=== PATIENT | female | born 1965 | race Caucasian/White ===

== ENCOUNTER 2017-10-17 10:55 | Emergency (ER) | payer MEDICARE, OTHER ==
[2017-10-17 11:43] VITALS: BP 154/86
--- NOTE | 2017-10-17 13:20 | UC ---
Complaint Female HPI - HPI Summary HPI Summary: pt is c/o a UTI. she describes this as frequent-urgent urination with burning and bad odor to the urine. states hx of the same. no fever, flank or abdominal pain. s/s's for a week. self tx with azo. - History Of Current Complaint Chief Complaint: UCGU Stated Complaint: URINARY Time Seen by Provider: 10/17/17 12:33 Hx Obtained From: Patient Onset/Duration: Gradual Onset Timing: Constant Pain Intensity: 0 Pain Scale Used: 0-10 Numeric Aggravating Factor(s): Nothing Alleviating Factor(s): Nothing Associated Signs And Symptoms: Negative: Fever, Back Pain - Allergies/Home Medications Allergies/Adverse Reactions: Allergies Allergy/AdvReac Type Severity Reaction Status Date / Time No Known Allergies Allergy Verified 10/17/17 11:43 Home Medications: Home Medications Baclofen TAB* [Lioresal TAB*] 20 mg PO TID 10/17/17 [History Confirmed 10/17/17 ] Dalfampridine [Ampyra] 10 mg PO BID 10/17/17 [History Confirmed 10/17/17] Gabapentin CAP(*) [Neurontin 100 mg CAP(*)] 100 mg PO TID 10/17/17 [History Confirmed 10/17/17] Interferon Beta-1A/Albumin [Avonex] 30 mcg IM 10/17/17 [History Confirmed ] PMH/Surg Hx/FS Hx/Imm Hx - Additional Past Medical History Additional PMH: MS,UTI's - Surgical History Surgical History: Yes Surgery Procedure, Year, and Place: Tonsillectomy, - Family History Known Family History: Positive: Other - [place] - Social History Occupation: Disabled Alcohol Use: Occasionally Substance Use Type: None Smoking Status (MU): Former Smoker - Immunization History Vaccination Up to Date: Yes Review of Systems Constitutional: Negative Skin: Negative Eyes: Negative ENT: Negative Respiratory: Negative Cardiovascular: Negative Gastrointestinal: Negative Genitourinary: Dysuria, Frequency Motor: Negative Neurovascular: Negative Musculoskeletal: Negative Neurological: Negative Psychological: Negative Is Patient Immunocompromised?: No All Other Systems Reviewed And Are Negative: Yes Physical Exam Triage Information Reviewed: Yes Appearance: Well-Appearing Vital Signs: Initial Vital Signs Temp 98.4 F 10/17/17 11:36 Pulse 93 10/17/17 11:36 Resp 16 10/17/17 11:36 BP 154/86 10/17/17 11:36 Pulse Ox 96 10/17/17 11:36 Vital Signs Reviewed: Yes Eyes: Positive: Conjunctiva Clear ENT: Positive: Normal ENT inspection Neck: Positive: Supple, Nontender, No Lymphadenopathy Respiratory: Positive: Lungs clear, Normal breath sounds Cardiovascular: Positive: RRR, No Murmur Abdomen Description: Positive: Nontender, No Organomegaly, Soft. Negative: CVA Tenderness (R), CVA Tenderness (L), Distended, Guarding Bowel Sounds: Positive: Present Musculoskeletal: Positive: ROM Intact Neurological: Positive: Alert Psychological: Positive: Age Appropriate Behavior Skin Exam: Normal Complaint Female Dx - Course Course Of Treatment: BP mildly elevated, will have recheck on f/u. non toxic, no acute abdomen. s/s's suggest UTI thus will tx presumtively with culture pending. no u/a, taking AZO - Differential Dx/Diagnosis Provider Diagnoses: Dysuria Discharge - Sign-Out/Discharge Documenting (check all that apply): Patient Departure - Discharge Plan Condition: Stable Disposition: HOME Prescriptions: Nitrofurantoin Monohyd/M-Cryst [Macrobid 100 mg Capsule] 100 mg PO BID #10 cap Patient Education Materials: Dysuria (ED) Referrals: Man Kidd MD [Primary Care Provider] - 7 Days - Billing Disposition and Condition Condition: STABLE Disposition: Home
== END 2017-10-17 12:54 | disposition home or self-care (01) ==
LOC: UCCORT 10:55
DX: R30.0 Dysuria (principal); G35 Multiple sclerosis; Z87.891 Personal history of nicotine dependence
CPT/HCPCS: 87077; 87086; 87186; 99212; G0463

== ENCOUNTER 2018-03-14 15:17 | Emergency (ER) | payer MEDICARE ==
[2018-03-14 15:54] VITALS: BP 156/87
--- NOTE | 2018-03-14 16:20 | UC ---
UC General HPI - HPI Summary HPI Summary: 1. PT C/O FREQUENT URINATION WITH BLADDER SPASM AND BURNING WITH STREAM X 2 WEEKS. WORSE SINCE YESTERDAY WHEN DEVELOPED ODOR TO URINE. HX SAME C/W UTI. HER NEUROLOGIST HAS ARRANGED FOR UROLOGY F/U IN 04/15 DUE TO URINARY ISSUES. DENIES FEVER, FLANK PAIN AND ABDOMINAL PAIN. 2. PT ALSO C/O PAIN IN HER R KNEE OVER SEVERAL MONTHS. STATES HX FALLS DUE TO MS. THIS AM BUMPED THE FRONT OF THAT KNEE ALL OF WHICH SHE FEELS IS MAKING THE KNEE WORSE. KNEE HURTS MORE WITH WEIGHT BEARING AND EXTENSION. PT FEELS FRONT OF KNEE IS SWOLLEN. - History of Current Complaint Chief Complaint: UCGU Stated Complaint: URINARY/RT KNEE SWOLLEN Time Seen by Provider: 03/14/18 16:03 Hx Obtained From: Patient Hx Last Menstrual Period: n/a Pain Intensity: 4 Associated Signs & Symptoms: Negative: Fever - Allergy/Home Medications Allergies/Adverse Reactions: Allergies Allergy/AdvReac Type Severity Reaction Status Date / Time environmntal Allergy Unknown Uncoded 03/14/18 15:55 Reaction Details Home Medications: Home Medications Cetirizine* [ZyrTEC 10 MG TAB*] 10 mg PO QPM 03/14/18 [History Confirmed ] Multivitamins/Minerals TAB* [Theragran/minerals TAB*] 1 tab PO DAILY 03/14/18 [ History Confirmed 03/14/18] PMH/Surg Hx/FS Hx/Imm Hx - Additional Past Medical History Additional PMH: MS, URINARY INCONTINENCE, UTI'S, LYMPHEDEMA - Surgical History Surgical History: Yes Surgery Procedure, Year, and Place: Tonsillectomy, - Family History Known Family History: Positive: Other - [place] - Social History Occupation: Disabled Alcohol Use: Occasionally Substance Use Type: None Smoking Status (MU): Former Smoker - Immunization History Vaccination Up to Date: Yes Review of Systems All Other Systems Reviewed And Are Negative: Yes Constitutional: Positive: Negative Skin: Positive: Negative Eyes: Positive: Negative ENT: Positive: Negative Respiratory: Positive: Negative Cardiovascular: Positive: Negative Gastrointestinal: Negative: Abdominal Pain, Vomiting, Diarrhea, Nausea Genitourinary: Positive: Dysuria, Frequency, Urgency Motor: Positive: Negative Neurovascular: Positive: Negative Musculoskeletal: Positive: Arthralgia - R KNEE, Edema - BLE'S, CHRONIC WITH NO CHANGES Neurological: Positive: Negative Psychological: Positive: Negative Physical Exam Triage Information Reviewed: Yes Appearance: Well-Appearing Vital Signs: Initial Vital Signs Temp 98.8 F 03/14/18 15:41 Pulse 91 03/14/18 15:41 Resp 18 03/14/18 15:41 BP 156/87 03/14/18 15:41 Pulse Ox 100 03/14/18 15:41 Vital Signs Reviewed: Yes Eyes: Positive: Conjunctiva Clear ENT: Positive: Normal ENT inspection Neck: Positive: Supple, Nontender Respiratory: Positive: Lungs clear, Normal breath sounds Cardiovascular: Positive: RRR, No Murmur Abdomen Description: Positive: Nontender, No Organomegaly, Soft. Negative: CVA Tenderness (R), CVA Tenderness (L), Distended, Guarding Bowel Sounds: Positive: Present Musculoskeletal: Positive: Edema @ - BLE'S KNEES DOWN L>R(CHRONIC AND UNCHANGED) , Other: - R KNEE COMPARED TO L HAS NO OBVIOUS DEFORMITY, DISCOLORATION OR SWELLING. TENDER OVER PATELLA AND JOINT LINE. ACTIVE NON WEIGHT ROM IS INTACT. NO JOINT LAXITY. Neurological: Positive: Alert Psychological: Positive: Age Appropriate Behavior Skin Exam: Normal Diagnostics - Laboratory Diagnostic Studies Completed/Ordered: U/A=PROTEIN, BLOOD, LEUKOCYTES WITH CULTURE PENDING. - Radiology No standard instances Radiology Interpretation Completed By: ED Physician - wet read R knee=NAD Course/Dx - Course Course Of Treatment: WILL TX FOR UTI. NO CONCERN FOR PYELONEPHRITIS AND NO BLADDER DISTENSION APPRECIATED ON EXAM. PT ALREADY HAS UROLOGY F/U. NO CONCERN FOR FX OR INFECTION R KNEE. WILL REFER TO ORTHOPEDICS. - Diagnoses Provider Diagnosis: UTI (urinary tract infection), Knee pain, right Discharge - Sign-Out/Discharge Documenting (check all that apply): Patient Departure All imaging exams completed and their final reports reviewed: No - Discharge Plan Condition: Stable Disposition: HOME Prescriptions: Nitrofurantoin Monohyd/M-Cryst [Macrobid 100 mg Capsule] 100 mg PO BID 5 Days # 10 cap Patient Education Materials: Urinary Tract Infection in Women (DC), Knee Pain ( ED) Referrals: Man Valdivia MD [Primary Care Provider] - Boogie Salcedo MD [Medical Doctor] - Additional Instructions: FOLLOW UP DR VALDIVIA SCHEDULED. FOLLOW UP UROLOGY SCHEDULED BY DR VALDIVIA IN 03/[address] SALCEDO FOR KNEE PAIN SOON POSSIBLE. GO TO ER FOR ANY WORSENING. - Billing Disposition and Condition Condition: STABLE Disposition: Home - Attestation Statements Provider Attestation: Per institutional requirements, I have reviewed the chart, however, I was not consulted specifically or made aware of this patient by the midlevel provider. I did not personally evaluate, interact with , or disposition this patient
--- NOTE | 2018-03-15 08:32 | UC ---
- Progress Note Progress Note: Radiologist reading of right knee x-ray from March 14, 2018 was read as normal. The provider's reading from the same date is also normal. Therefore there is no discrepancy. Course/Dx - Diagnoses Provider Diagnoses: UTI (urinary tract infection), Knee pain, right Discharge - Sign-Out/Discharge Documenting (check all that apply): Patient Departure All imaging exams completed and their final reports reviewed: Yes - Discharge Plan Condition: Stable Disposition: HOME Prescriptions: Nitrofurantoin Monohyd/M-Cryst [Macrobid 100 mg Capsule] 100 mg PO BID 5 Days # 10 cap Patient Education Materials: Urinary Tract Infection in Women (DC), Knee Pain ( ED) Referrals: Boogie Salcedo MD [Medical Doctor] - Man Valdivia MD [Primary Care Provider] - Additional Instructions: FOLLOW UP DR VALDIVIA SCHEDULED. FOLLOW UP UROLOGY SCHEDULED BY DR VALDIVIA IN 03/[address] SALCEDO FOR KNEE PAIN SOON POSSIBLE. GO TO ER FOR ANY WORSENING. - Billing Disposition and Condition Condition: STABLE Disposition: Home
== END 2018-03-14 18:17 | disposition home or self-care (01) ==
LOC: UCCORT 15:17
DX: Z87.891 Personal history of nicotine dependence (principal); B96.20 Unspecified Escherichia coli [E. coli] as the cause of diseases classified elsewhere; N39.0 Urinary tract infection, site not specified; M25.561 Pain in right knee; G35 Multiple sclerosis
CPT/HCPCS: 81003; 87077; 87086; 87186; 99211; G0463

== ENCOUNTER 2018-10-12 18:32 | Inpatient (IN) | payer MEDICARE ==
--- OUTSIDE RECORDS SUMMARY | 2018-10-12 18:50 | XMS REPORT | Continuity of Care Document ---
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 Anh Helms MD, PHD Primary Care Physician Unavailable Payers Date Identification Numbers Payment Provider Subscriber Policy Number: [id number] [facility] Medicare Desire [place] PayID: [id number] [address] [address] [place] [address] Expires: 2018 Policy Number: [id number] Medicare [employer]ire [place] PayID: [id number] [address] [address] [place] [address] Expires: 2018 Policy Number: [id number] [facility] Desire [place] PayID: [id number] [address] [address] [place] [address] Problems Active Problems Provider Date Obesity Johanna Zavala RPAC Onset: 03/11/2011 Allergy Johanna Zavala, RPAC Onset: 03/11/2011 Benign essential hypertension Johanna Zavala RPAC Onset: 03/11/2011 Multiple sclerosis Johanna Zaavla, RPAC Onset: 03/11/2011 Knee pain Anh Helms MD, PHD Onset: 06/05/2018 Family History Date Family Member(s) Observation Comments Father due to Stroke () Father Stroke @ 50 yrs old Mother Fibromyalgia Mother Cancer First Daughter Obesity Social History Type Date Description Comments Sex Unknown Marital Status Single Lives With Alone Diet Five to six small well balanced meal a day Occupation Disabled ADL's/IADL's Slow with all ADL's Does not walk too much Tobacco Use Start: Unknown Never Smoked Cigarettes ETOH Use Rarely consumes alcohol Tobacco Use Start: Unknown Patient denies history of smoking Smoking Status Reviewed: 10/02/18 Patient denies history of smoking Allergies, Adverse Reactions, Alerts Active Allergies Reaction Severity Comments Date NKDA 02/25/2010 Latex itching & rash 03/27/2014 Medications Active Medications SIG Qnty Indications Ordering Provider Date [facility] every 4 hours 100units N32.81 Anh Helms, 10/02/2018 Incontinence as needed , PHD Underpads 30"X36" 30"X36" Misc R35.0 G35 Tylenol 2 tabs as needed for 30tabs M25.561 Anh Helms, 10/02/2018 325mg Tablets pain or discomfort , PHD every 4 hours as needed Arnicare apply to affected 75g M25.561 Anh Helms, 10/02/2018 Gel area four times a , PHD day pain, swelling, bruising Oscal 500/200 D-3 1 tab by mouth twice 60tabs M25.561 Anh Helms, 10/2018 a day , PHD [id number] Tablets Triamterene/Hydrochl 1 by mouth every day 90caps Samy Botello, 2018 orothiazide DO 37.5-25mg Capsules Vitamin K2 1 caps by mouth 90caps M25.561 Anh Helms, 06/05/2018 100mcg every day , PHD Capsules Vitamin D3 take two capsules by 180caps M25.561 Anh Helms, 2018 2000Unit mouth every day , PHD Capsules Diflucan 1 tab by mouth as 1tabs R30.0 Anh Helms, 06/05/2018 150mg once , PHD Tablets Bactrim DS 1 tab by mouth twice 10tabs R30.0 Anh Helms, 06/05/2018 800-160mg a day , PHD Tablets Oxybutynin Chloride 1-2 tablets by mouth 180tabs N32.81 Jerod Lealan, ER every day M.D. 5mg Tablets ER 24HR Miralax 17 grams mixed in 510units G35 Keny Leal, 05/02/2018 3350NF Powder water or juice..po M.D. daily or as directed Gabapentin 2 caps in am & Josh Valdivia, 01/26/2018 300mg afternoon,3caps at MD Capsules bedtime Baclofen 1 tab 5x daily Josh Valdivia, 20mg Tablets Multi-Day Vitamins 1 po qd Chelo, MD Jovanna Tablets Ampyra bid Chelo, 10mg Tablets MD Jovanna ER 12HR Avonex Pen 30 mcg Im q week Chelo, MD Jovanna 30mcg/0.5ML Kit Ibuprofen 1 tab every 8hrs as Josh Valdivia, 800mg needed MD Tablets History Medications Incontinence Brief every 4 hours 144units N32.81 Anh Helms, 2018 - Large as needed , PHD 10/02/2018 Misc D3 Maximum Strength 1 cap by mouth 90caps M25.561 Anh Helms, 2018 - every day , PHD 06/05/2018 5000Unit Capsules Incontinence Pads 6 Pads per day 540units N32.81 ElvisAugustineKeny, 2018 - M.D. 10/02/2018 Short Length Amoxicillin 1 tab by mouth 21tabs N39.0 Keny Leal, 05/02/2018 - 500mg three times a M.D. 06/05/2018 Tablets day Ibuprofen one po q 8 90tabs Unknown 04/20/2018 - 800mg hours prn 05/01/2018 Tablets Triamterene/Hydrochl 1 by mouth 90caps Samy Botello, 12/25/2014 - orothiazide every day DO 05/01/2018 37.5-25mg Capsules Gralise one cap tid Unknown 04/25/2014 - 600mg Tablets 05/01/2018 Sertraline HCL 1 tab by mouth 180tabs Chelo, 04/23/2014 - 25mg twice a day MD Jovanna 05/01/2018 Tablets [facility] 1 po qd 30caps Chelo, 10/07/2011 - MD Jovanna 05/01/2018 10mg Capsules Triamterene/Hydrochl take 1 tablet 90tabs Samy Botello, 11/02/2010 - orothiazide by mouth once DO 12/25/2014 37.5-25 daily Tablets Baclofen Unknown - Tablets 12/25/2014 Triamterene/Hydrochl Unknown - orothiazide 12/25/2014 Tablets Avonex Unknown - Kit 12/25/2014 Calcium + D po bid Unknown - 05/01/2018 [id number] Tablets Gabapentin Unknown - Capsules 12/25/2014 Zyrtec Allergy Unknown - 12/25/2014 Capsules Vitamin D 60caps Unknown - Capsules 12/25/2014 Immunizations CPT Code Status Date Vaccine Lot # [id number] Given 06/21/2005 flu vaccination Vital Signs Date Vital Result Comment 10/02/2018 9:23am BP Systolic 154 mmHg BP Diastolic 94 mmHg Body Temperature 97.6 F Heart Rate 95 /min Respiratory Rate 29 /min Height 62 inches 5'2" Weight 214.00 lb Per pt BMI (Body Mass Index) 39.1 kg/m2 BSA (Body Surface Area) 1.97 m2 [place] body weight in kilograms 50 kg O2 % BldC Oximetry 98 % 06/05/2018 9:47am BP Systolic 177 mmHg BP Diastolic 114 mmHg Body Temperature 97.6 F Heart Rate 81 /min Respiratory Rate 20 /min Height 62 inches 5'2" Weight 214.00 lb BMI (Body Mass Index) 39.1 kg/m2 BSA (Body Surface Area) 1.97 m2 [place] body weight in kilograms 50 kg O2 % BldC Oximetry 95 % 05/02/2018 10:41am BP Systolic Sitting Left Arm 138 mmHg lg cuff BP Diastolic Sitting Left Arm 98 mmHg lg cuff Body Temperature 96.8 F Heart Rate 90 /min Respiratory Rate 18 /min Height 62 inches 5'2" Weight 214.00 lb BMI (Body Mass Index) 39.1 kg/m2 BSA (Body Surface Area) 1.97 m2 [place] body weight in kilograms 50 kg O2 % BldC Oximetry 98 % Ra 05/14/2014 10:46am BP Systolic 112 mmHg BP Diastolic 68 mmHg Height 62 inches 5'2" Weight 180.00 lb 04/23/2014 11:56am BP Systolic 122 mmHg BP Diastolic 70 mmHg Body Temperature 98.4 F Height 62 inches 5'2" Weight 174.00 lb 12/25/2013 2:28pm BP Systolic 132 mmHg BP Diastolic 74 mmHg Height 62 inches 5'2" Weight 175.00 lb 12/25/2013 2:33pm Body Temperature 97.3 F 09/21/2013 9:32am BP Systolic 140 mmHg BP Diastolic 82 mmHg Heart Rate 80 /min Height 62 inches 5'2" Weight 176.00 lb With Brace On 05/01/2013 10:02am BP Systolic 118 mmHg BP Diastolic 72 mmHg Height 62 inches 5'2" Weight 178.00 lb 12/28/2012 9:42am BP Systolic 132 mmHg BP Diastolic 70 mmHg Weight 182.00 lb 04/12/2012 1:15pm BP Systolic 132 mmHg BP Diastolic 74 mmHg Height 62 inches 5'2" Weight 176.00 lb 04/06/2012 10:24am BP Systolic 130 mmHg BP Diastolic 82 mmHg Weight 177.00 lb 10/07/2011 1:01pm BP Systolic 132 mmHg BP Diastolic 78 mmHg Weight 178.00 lb 04/07/2011 11:18am BP Systolic 144 mmHg BP Diastolic 92 mmHg Height 61 inches 5'1" Weight 182.00 lb 03/16/2011 1:14pm BP Systolic 122 mmHg BP Diastolic 78 mmHg Height 61 inches 5'1" Weight 183.00 lb 03/16/2011 1:29pm Body Temperature 98.1 F 02/25/2010 9:19am Height 61 inches 5'1" Weight 178.00 lb BMI (Body Mass Index) 33.6 kg/m2 Results Test Date Facility Test Result H/L Range Note Urine Dipstick 06/05/2018 [facility] Ua Color Yellow Yellow Ua Clarity Cloudy Clear Ua Leuko 1+ High Negative Ua Nitrite negative Negative Ua Urobilinogen negative Low 0.2 - 1.0 E.U./dL Ua Protein Trace Negative Ua PH 8.0 High 6.5-7.5 Ua Blood 3+ High Negative Ua Specific Sylvester 1.015 1.010-1.030 Ua Ketones negative Negative Ua Bilirubin negative Negative Ua Glucose negative Negative Urine Culture 06/05/2018 [facility] Urine Culture MIXED URETHRAL F 1, [address] <SEE NOTE> [place], [place] [id number] [phone] Quantity < 10,000 CFU/mL Ua RFX Micro & Culture 06/05/2018 [facility] Urine Color YELLOW Yellow II [address] [place] [address] [phone] Urine Clarity CLOUDY Clear Urine Glucose - Dipstick NEGATIVE mg/dL Negative Urine Bilirubin - Dipstick NEGATIVE Negative Urine Ketone NEGATIVE mg/dL Negative Urine Specific Sylvester 1.015 Normal 1.010-1.030 Urine Blood LARGE Abnormal Negative Urine PH 8.5 High 6.5-7.5 Urine Protein - Dipstick NEGATIVE mg/dL Negative Urine Urobilinogen - Dipstick 0.2 E.U./dL Normal 0.2-1.0 Urine Nitrite - Dipstick NEGATIVE Negative Urine Leuk Esterase SMALL Abnormal Negative Urine RBC 10-20 rbc/hpf High 0-2 Urine WBC 5-10 wbc/hpf 0-7 Urine Epithelial Cells FEW /lpf None Seen Urine Bacteria FEW None Seen Urine Amorph Sediment MODERATE Negative Source: URINE, CLEAN CAT <SEE NOTE> 3 Urine Culture 05/02/2018 [facility] Urine Culture URETHRAL SHANA [address] [place] [address] [phone] Quantity 10,000 - 50,000 <SEE NOTE> 5 Liver Function 05/02/2018 [facility] Total Protein 7.1 g/dL Normal 6.4-8.2 Tests [address] [place] [address] [phone] Albumin 3.6 g/dL Normal 3.4-5.0 Globulin 3.5 g/dL Normal 1.9-4.3 Alb/Glob 1.0 ratio Bilirubin,Total 0.3 mg/dL Normal 0.2-1.0 Bilirubin,Direct < 0.1 mg/dL Normal 0.0-0.2 Bilirubin,Indirect 0.2 mg/dL Normal 0.0-0.9 Sgot/Ast 17 U/L Normal 15-37 SGPT/Alt 34 U/L Normal 12-78 Alkaline Phosphatase 104 U/L Normal 45-117 Glycohemoglobin 05/02/2018 [facility] Glycohemoglobin 5.9 % Normal 4.2-6.3 6 A1c [address] (A1c) [place] [address] [phone] eAG 123 mg/dL Laboratory test 05/02/2018 [facility] Gamma Glutamyl 20 U/L Normal 5-[address] [place] [address] [phone] Renal Function 05/02/2018 [facility] Glucose 106 Normal 74-[address] mg/[place] [address] [phone] BUN 13 mg/dL Normal 7-18 Creatinine 0.6 mg/dL 0.6-1.3 Glom Filtration Rate, Estimate >60 mL/min >60 If >60 mL/min >60 7 BUN/Creat 21.6 ratio Sodium 138 mmol/L Normal 136-145 Potassium 3.6 mmol/L Normal 3.5-5.1 Chloride 104 mmol/L Normal 98-107 Carbon Dioxide 28 mmol/L Normal 21-32 Anion Gap 6 mEq/L Low 8-16 Calcium 8.8 mg/dL Normal 8.5-10.1 Phosphorous 4.1 mg/dL High 2.5-4.0 CBC W/Automated 05/02/2018 [facility] White Blood 6.1 K/uL Normal 3.1-10.[address] [place] [address] [phone] Red Blood Count 4.86 M/uL Normal 3.90-5.40 Hemoglobin 14.2 gm/dL Normal 11.6-15.8 Hematocrit 42.8 % Normal 36.0-46.1 Mean Cell Volume 88.1 fl Normal 80.9-99.0 Mean Corpuscular HGB 29.2 pg Normal 25.9-32.7 Mean Corpuscular HGB Conc 33.2 g/dL Normal 30.8-34.3 Platelet Count 308 K/uL Normal 155-360 Red Cell Distri Width SD 41.9 fl Normal 36-47 Red Cell Distri Width %CV 13.2 % Normal 11.7-14.4 Mean Platelet Volume 11.3 fL Normal 8.9-12.4 Neut% 51.8 % Normal 40.4-72.8 Lymph % 33.4 % Normal 20.0-42.0 [place] % 11.7 % Normal 4.3-13.2 Eo% 2.8 % Normal 0.0-6.6 Bas% 0.3 % Normal 0.0-1.1 Neut# 3.15 K/uL Normal 1.8-7.0 Lymph # 2.03 K/uL Normal 1.0-4.0 [place] # 0.71 K/uL Normal 0.3-0.9 Eos # 0.17 K/uL Normal 0.0-0.5 Baso # 0.02 K/uL Normal 0.0-0.1 Urine Dipstick 05/02/2018 [facility] Ua Color yellow Yellow Ua Clarity clear Clear Ua Leuko negative Negative Ua Nitrite negative Negative Ua Urobilinogen negative Low 0.2 - 1.0 E.U./dL Ua Protein 3+ High Negative Ua PH 7.5 6.5-7.5 Ua Blood 2+ High Negative Ua Specific Sylvester 1.015 1.010-1.030 Ua Ketones negative Negative Ua Bilirubin negative Negative Ua Glucose negative Negative CBS W/Automated 08/21/2017 [facility] White Blood 7.6 K/uL Normal 3.1-10.7 [address] [place] [address] [phone] Red Blood Count 4.72 M/uL Normal 3.90-5.40 Hemoglobin 13.9 gm/dL Normal 11.6-15.8 Hematocrit 40.7 % Normal 36.0-46.1 Mean Cell Volume 86.2 fl Normal 80.9-99.0 Mean Corpuscular HGB 29.4 pg Normal 25.9-32.7 Mean Corpuscular HGB Conc 34.2 g/dL Normal 30.8-34.3 Platelet Count 280 K/uL Normal 155-360 Red Cell Distri Width SD 41.1 fl Normal 3-47 Red Cell Distri Width %CV 13.4 % Normal 11.7-14.4 Mean Platelet Volume 9.9 fL Normal 8.9-12.4 Neut% 62.1 % Normal 40.4-72.8 Lymph % 20.5 % Normal 20.0-42.0 [place] % 11.5 % Normal 4.3-13.2 Eo% 5.4 % Normal 0.0-6.6 Bas% 0.5 % Normal 0.0-1.1 Neut# 4.68 K/uL Normal 1.8-7.0 Lymph # 1.55 K/uL Normal 1.0-4.0 [place] # 0.87 K/uL Normal 0.3-0.9 Eos # 0.41 K/uL Normal 0.0-0.5 Baso # 0.04 K/uL Normal 0.0-0.1 Comprehensive Metabolic 08/21/2017 [facility] Glucose 132 mg/dL High 74-106 Panel [address] [place] [address] [phone] BUN 13 mg/dL Normal 7-18 Creatinine 0.9 mg/dL Normal 0.6-1.3 Glom Filtration Rate, Estimate >60 mL/min >60 If >60 mL/min >60 9 BUN/Creat 14.4 ratio Sodium 140 mmol/L Normal 136-145 Potassium 3.6 mmol/L Normal 3.5-5.1 Chloride 104 mmol/L Normal 98-107 Carbon Dioxide 27 mmol/L Normal 21-32 Anion Gap 9 mEq/L Normal 8-16 Calcium 8.7 mg/dL Normal 8.5-10.1 Total Protein 7.5 g/dL Normal 6.4-8.2 Albumin 3.4 g/dL Normal 3.4-5.0 Globulin 4.1 g/dL Normal 1.9-4.3 Alb/Glob 0.8 ratio Bilirubin,Total 0.3 mg/dL Normal 0.2-1.0 Sgot/Ast 49 U/L High 15-37 SGPT/Alt 82 U/L High 12-78 Alkaline Phosphatase 131 U/L High 45-117 Laboratory test finding 08/21/2017 [facility] CK 159 U/L Normal 26-192 [address] [place] [address] [phone] Troponin-I < 0.015 ng/mL 10 Ua RFX Micro & Culture 08/21/2017 [facility] Urine Color YELLOW Yellow II [address] [place] [address] [phone] Urine Clarity CLOUDY Clear Urine Glucose - Dipstick NEGATIVE mg/dL Negative Urine Bilirubin - Dipstick NEGATIVE Negative Urine Ketone NEGATIVE mg/dL Negative Urine Specific Sylvester 1.025 Normal 1.010-1.030 Urine Blood LARGE Abnormal Negative Urine PH 6.0 Low 6.5-7.5 Urine Protein - Dipstick 100 mg/dL High Negative Urine Urobilinogen - Dipstick 1.0 E.U./dL Normal 0.2-1.0 Urine Nitrite - Dipstick POSITIVE Abnormal Negative Urine Leuk Esterase LARGE Abnormal Negative Urine RBC 20-30 rbc/hpf High 0-2 Urine WBC > 50 wbc/hpf High 0-7 Urine Epithelial Cells FEW /lpf None Seen Urine Bacteria MODERATE Abnormal None Seen Source: URINE, CLEAN CAT <SEE NOTE> 11 Culture If 08/21/2017 [facility] Culture If CULTURE TO 12 Indicated Comment [address] Indicated Comment [place]O <[place] [address] NOTE> [phone] Source: URINE, CLEAN CAT <SEE NOTE> 13 Urine Culture 08/21/2017 [facility] Urine ESCHERICHIA COLI Abnormal [address] [place] [address] [phone] Quantity > 100,000 CFU/mL 15 Urine Culture URETHRAL SHANA Quantity 10,000 - 50,000 <SEE NOTE> 16 Escherichia Coli 08/21/2017 [facility] Nitrofurantoin 64 Intermediate [address] [place] [address] [phone] Trimethoprim/Sulfamethoxazole <=20 Susceptible Ampicillin <=2 Susceptible Cefazolin <=4 Susceptible Ampicillin/Sulbactam <=2 Susceptible Ciprofloxacin <=0.25 Susceptible Piperacillin/Tazobactam <=4 Susceptible Ceftazidime <=1 Susceptible Ceftriaxone <=1 Susceptible Cefepime <=1 Susceptible Levofloxacin <=0.12 Susceptible Imipenem <=0.25 Susceptible Gentamicin <=1 Susceptible Tobramycin <=1 Susceptible Ua RFX Micro & Culture 03/16/2017 [facility] Urine Color YELLOW Yellow 17 II [address] [place] [address] [phone] Urine Clarity CLEAR Clear Urine Glucose - Dipstick NEGATIVE mg/dL Negative Urine Bilirubin - Dipstick NEGATIVE Negative Urine Ketone TRACE mg/dL High Negative Urine Specific Sylvester 1.020 Normal 1.010-1.030 Urine Blood LARGE Abnormal Negative Urine PH 7.0 Normal 6.5-7.5 Urine Protein - Dipstick >=300 mg/dL High Negative Urine Urobilinogen - Dipstick 2.0 E.U./dL High 0.2-1.0 Urine Nitrite - Dipstick POSITIVE Abnormal Negative Urine Leuk Esterase SMALL Abnormal Negative Urine RBC TNTC rbc/hpf High 0-2 Urine WBC 30-50 wbc/hpf High 0-7 Urine Epithelial Cells FEW /lpf None Seen Urine Bacteria VERY FEW None Seen Source: URINE, CLEAN CAT <SEE NOTE> 18 Culture If 03/16/2017 [facility] Culture If CULTURE TO 19 Indicated Comment [address] Indicated Comment [place] <[place] [address] NOTE> [phone] Source: URINE, CLEAN CAT <SEE NOTE> 20 Urine Culture 03/16/2017 [facility] Urine Culture URETHRAL SHANA [address] [place] [address] [phone] Quantity 10,000 - 50,000 <SEE NOTE> 21 Color Ur 03/16/2017 N2N/CCD Import Color Ur Yellow Yellow pH Ur Strip.auto 03/16/2017 N2N/CCD Import pH Ur Strip.auto 7.0 6.5-7.5 Urobilinogen Ur 03/16/2017 N2N/CCD Import Urobilinogen Ur 2.0 High 0.2- 1.0 Strip-aCnc Strip-aCnc Ketones Ur 03/16/2017 N2N/CCD Import Ketones Ur Trace High Negative Strip.auto-mCnc Strip.auto-mCnc Leukocyte 03/16/2017 N2N/CCD Import Leukocyte Small High Negative esterase Ur Ql esterase Ur Ql Strip.auto Strip.auto Nitrite Ur Ql 03/16/2017 N2N/CCD Import Nitrite Ur Ql Positive High Negative Strip.auto Strip.auto Specific gravity 03/16/2017 N2N/CCD Import Specific gravity 1.020 1.010- 1.03 of Urine by of Urine by 0 Automated test Automated test strip strip Unloinc 03/16/2017 N2N/CCD Import [facility]inc Culture To Follow Urine appearance 03/16/2017 N2N/CCD Import Urine appearance Clear Clear determination determination Urine glucose 03/16/2017 N2N/CCD Import Urine glucose Negative Negative measurement by measurement by automated test automated test strip strip (mass/volume) Urine total 03/16/2017 N2N/CCD Import Urine total Negative Negative bilirubin bilirubin detection by detection by automated test automated test strip Urine hemoglobin 03/16/2017 N2N/CCD Import Urine hemoglobin Large High Negative detection by detection by automated test automated test strip strip CBC Auto Diff 07/23/2015 [facility] White Blood 5.3 Normal 3.5-10.8 [phone] Count 10^3/uL Red Blood Count 4.56 10^6/uL Normal 4.0-5.4 Hemoglobin 13.1 g/dL Normal 12.0-16.0 Hematocrit 40 % Normal 35-47 Mean Corpuscular Volume 88 fL Normal 80-97 Mean Corpuscular Hemoglobin 29 pg Normal 27-31 Mean Corpuscular HGB Conc 32 g/dL Normal 31-36 Red Cell Distribution Width 14 % Normal 10.5-15 Platelet Count 283 10^3/uL Normal 150-450 Mean Platelet Volume 9 um3 Normal 7.4-10.4 Abs Neutrophils 3.2 10^3/uL Normal 1.5-7.7 Abs Lymphocytes 1.5 10^3/uL Normal 1.0-4.8 Abs Monocytes 0.5 10^3/uL Normal 0-0.8 Abs Eosinophils 0.1 10^3/uL Normal 0-0.6 Abs Basophils 0 10^3/uL Normal 0-0.2 Abs Nucleated RBC 0 10^3/uL Normal Granulocyte % 59.8 % Normal 38-83 Lymphocyte % 28.3 % Normal 25-47 Monocyte % 9.3 % High 1-9 Eosinophil % 1.8 % Normal 0-6 Basophil % 0.8 % Normal 0-2 Nucleated Red Blood Cells % 0 Normal Comp Metabolic 07/23/2015 [facility] Sodium 138 mmol/ L Normal 133-145 Panel [phone] Potassium 4.2 mmol/L Normal 3.5-5.0 Chloride 102 mmol/L Normal 101-111 Co2 Carbon Dioxide 32 mmol/L Normal 22-32 Anion Gap 4 mmol/L Normal 2-11 Glucose 81 mg/dL Normal 70-100 Blood Urea Nitrogen 8 mg/dL Normal 6-24 Creatinine 0.64 mg/dL Normal 0.51-0.95 BUN/Creatinine Ratio 12.5 Normal 8-20 Calcium 9.5 mg/dL Normal 8.6-10.3 Total Protein 6.5 g/dL Normal 6.4-8.9 Albumin 4.2 g/dL Normal 3.2-5.2 Globulin 2.3 g/dL Normal 2-4 Albumin/Globulin Ratio 1.8 Normal 1-3 Total Bilirubin 0.40 mg/dL Normal 0.2-1.0 Alkaline Phosphatase 65 U/L Normal 34-104 Alt 15 U/L Normal 7-52 Ast 16 U/L Normal 13-39 Egfr Non- 98.6 Normal >60 Egfr 126.8 Normal >60 22 Laboratory test 05/14/2014 N2N/CCD Import Urine Culture See Note 23 finding Laboratory test 04/23/2014 N2N/CCD Import Urine Culture See Note 24 finding Laboratory test 03/27/2014 N2N/CCD Import Amphetamines (Urine) Negative finding Barbiturates (Urine) Negative Benzodiazepines (Urine) Negative Cannabinoids (Urine) Negative Cocaine Metabolite (Urine) Negative Methadone (Urine) Negative Opiates (Urine) Negative Urine Cutoffs * 25 Laboratory test finding 01/01/2014 N2N/CCD Import BUN 8 mg/dL 7-18 Creatinine 0.8 mg/dL 0.6-1.3 Laboratory test 12/27/2013 N2N/CCD Import Urine Culture See Note 26 finding Laboratory test 09/21/2013 N2N/CCD Import Bas% 0.3 % 0.0-1.1 finding Baso # 0.02 K/uL 0.0-0.1 Eo% 2.0 % 0.0-6.6 Eos # 0.12 K/uL 0.0-0.5 Hematocrit 41.2 % 36.0-46.1 Hemoglobin 14.4 gm/dL 11.6-15.8 Lymph # 1.87 K/uL 0.8-3.4 Lymph % 30.4 % 17.0-46.1 Mean Cell Volume 87.7 fl 80.9-99.0 Mean Corpuscular HGB 30.6 pg 25.9-32.7 Mean Corpuscular HGB Conc 35.0 g/dL High 30.8-34.3 Mean Platelet Volume 10.6 fL 8.9-12.4 [place] # 0.67 K/uL 0.3-0.9 [place] % 10.9 % 4.3-13.2 Neut# 3.47 K/uL 1.0-7.0 Neut% 56.4 % 40.4-72.8 Platelet Count 292 K/uL 155-360 Red Blood Count 4.70 M/uL 3.90-5.40 Red Cell Distri Width %CV 12.9 % 11.7-14.4 Red Cell Distri Width SD 40.0 fl 3-47 Thyroid Stim Hormone 1.58 uIU/mL 0.49-4.67 27 Vitamin B12 599 pg/mL 200-900 28 Vitamin D,1,25 Dihydroxy 58.3 pg/mL 10.0-75.0 29 White Blood Count 6.2 K/uL 3.1-10.7 Comprehensive Metabolic Panel 09/21/2013 N2N/Cube Route Import Alb/Glob 1.1 ratio Albumin 4.0 g/dL 3.5-5.0 Alkaline Phosphatase 61 U/L 50-136 Anion Gap 8 mEq/L 8-16 BUN 9 mg/dL 5-23 BUN/Creat 15.0 ratio Bilirubin,Total 0.4 mg/dL 0.2-1.2 Calcium 9.4 mg/dL 8.5-10.1 Carbon Dioxide 31 mEq/L High 18-29 Chloride 103 mmol/L 98-107 Creatinine 0.6 mg/dL 0.5-1.4 Globulin 3.5 g/dL 1.9-4.3 Glom Filtration Rate, Estimate >60 mL/min >60 Glucose 85 mg/dL 76-115 If >60 mL/min >60 30 Potassium 3.5 mmol/L 3.5-5.1 SGPT/Alt 33 U/L 30-65 Sgot/Ast 15 U/L Low 16-40 Sodium 138 mmol/L 136-145 Total Protein 7.5 g/dL 6.3-8.0 Laboratory test 05/01/2013 N2N/Cube Route Import Cytology Pap See Note 31 finding CBC 12/12/2012 N2N/Cube Route Import Hematocrit 42.9 % 36.0-46.1 Hemoglobin 14.7 gm/dL 11.6-15.8 Mean Cell Volume 87.6 fl 80.9-99.0 Mean Corpuscular HGB 30.0 pg 25.9-32.7 Mean Corpuscular HGB Conc 34.3 g/dL 30.8-34.3 Mean Platelet Volume 9.9 fL 8.9-12.4 Platelet Count 310 K/uL 155-360 Red Blood Count 4.90 M/uL 3.90-5.40 Red Cell Distri Width %CV 13.0 % 11.7-14.4 White Blood Count 7.4 K/uL 3.1-10.7 Comprehensive Metabolic Panel 12/12/2012 N2N/Cube Route Import Alb/Glob 1.1 ratio Albumin 4.1 g/dL 3.5-5.0 Alkaline Phosphatase 82 U/L 50-136 Anion Gap 8 mEq/L 8-16 BUN 9 mg/dL 5-23 BUN/Creat 12.8 ratio Bilirubin,Total 0.4 mg/dL 0.2-1.2 Calcium 10.0 mg/dL 8.5-10.1 Carbon Dioxide 33 mEq/L High 18-29 Chloride 104 mmol/L 98-107 Creatinine 0.7 mg/dL 0.5-1.4 Globulin 3.6 g/dL 1.9-4.3 Glom Filtration Rate, Estimate >60 mL/min >60 Glucose 94 mg/dL 76-115 If >60 mL/min >60 32 Potassium 3.8 mmol/L 3.5-5.1 SGPT/Alt 29 U/L Low 30-65 Sgot/Ast 14 U/L Low 16-40 Sodium 141 mmol/L 136-145 Total Protein 7.7 g/dL 6.3-8.0 Laboratory test 04/12/2012 N2N/CCD Import Cytology Pap See Note 33 finding Urine Culture And 04/06/2012 N2N/CCD Import Urine Culture (See Note) 34 Sensitivities Laboratory test 10/07/2011 N2N/CCD Import Hemoglobin A1c 5.6 % Less Than 35 finding 6.0 Vitamin D, 1,25 Dihydroxy 42 pg/mL 18-78 36 Renal Function Panel 10/07/2011 N2N/CCD Import Albumin 4.1 GM/DL 3.6- 5.4 BUN 15 mg/dL 6-24 BUN/Creatinine Ratio 15.0 8-20 Calcium 9.6 mg/dL 8.1-9.9 Chloride 100 mmol/L Low 101-111 Co2 (Carbon Dioxide) 31.0 mmol/L 22-32 Creatinine 1.0 mg/dL 0.50-1.40 Glucose 92 mg/dL 70-100 Phosphorus 4.2 mg/dL 2.4-4.7 Potassium 4.4 mmol/L 3.5-5.0 Sodium 138 mmol/L 135-145 eGFR 77.1 > 60 37 eGFR Non- 60.0 > 60 Urine Culture & 04/07/2011 N2N/CCD Import M 38 Sensitivi <See Note> Laboratory test 04/07/2011 N2N/CCD Import Cytology Pap See Note 39 finding Urine Culture & 03/16/2011 N2N/CCD Import M 40 Sensitivi <See Note> Laboratory test 03/16/2011 N2N/CCD Import Hemoglobin A1c 5.3 % Less 41 finding Than 6.0 CBC Auto Diff 03/16/2011 N2N/CCD Import Abs Basophils 0.1 0-0.2 Abs Eosinophils 0.2 0-0.6 Abs Lymphs 2.8 1.0-4.8 Abs Mononuclear 0.7 0-0.8 Absolute Neutrophil Count 4.1 1.5-7.7 Basophil % 1.2 % 0-2 Eosinophil % 2.3 % 0-6 Gran % 52.4 % 38-83 Hematocrit 40 % 35-47 Hemoglobin 13.8 g/dL 12.0-16.0 Lymph % 35.7 % 25-47 Mean Corpuscular HGB Cone 35 g/dL 32-36 Mean Corpuscular Hemoglob 31 pg 27-31 Mean Corpuscular Volume 88 um3 79-97 Mean Platelet Volume 9.8 um3 7.4-10.4 Mononuclear % 8.4 % 1-9 Platelet Count 245 CUMM 150-450 Red Cell Count 4.52 CUMM 4.2-5.4 Redcell Distribution WDTH 13 % 10.5-15 White Blood Count 7.9 CUMM 4.8-10.8 Comp Metabolic Panel 03/16/2011 N2N/CCD Import Albumin 4.1 GM/DL 3.6- 5.4 Albumin/Globulin Ratio 1.3 1-3 Alkaline Phosphatase 68 U/L 30-110 Alt (SGPT) 29 U/L 14-54 Anion Gap 7.0 mmol/L 2-11 42 Ast (Sgot) 23 U/L 12-42 BUN 5 mg/dL Low 6-24 BUN/Creatinine Ratio 7.1 Low 8-20 Bilirubin Total 0.6 mg/dL 0.4-1.5 43 Calcium 9.6 mg/dL 8.1-9.9 Chloride 102 mmol/L 101-111 Co2 (Carbon Dioxide) 33.0 mmol/L High 22-32 Creatinine 0.7 mg/dL 0.50-1.40 Globulin 3.1 GM/DL 2-4 Glucose 80 mg/dL 70-100 One Over Creatinine 1.42 Potassium 3.9 mmol/L 3.5-5.0 Sodium 142 mmol/L 135-145 Total Protein 7.2 GM/DL 6.2-8.1 eGFR 116.4 > 60 44 eGFR Non- 90.5 > 60 Liver Function Panel 03/16/2011 N2N/CCD Import Bilirubin Direct 0.1 mg/dL 0.1-0.5 Indirect Bilirubin 0.5 mg/dL 0.3-1.0 45 Liver Function Tests 03/04/2010 [facility] Total Protein 6.7 g/dL 6.3-8.0 [address] [place] [address] [phone] Albumin 3.2 g/dL Low 3.5-5.0 Bilirubin,Total 0.9 mg/dL 0.2-1.2 Bilirubin,Direct 0.5 mg/dL High 0.1-0.4 Bilirubin,Indirect 0.4 mg/dL 0.0-0.9 Sgot/Ast 135 U/L High 16-40 SGPT/Alt 418 U/L Critical high 30-65 Alkaline Phosphatase 621 U/L Critical high 50-136 Globulin 3.5 gm/dL 1.9-4.3 Alb/Glob 0.9 Laboratory 03/04/2010 [facility] Amylase 244 U/L Critical 18-98 46 test finding [address] [place] [address] [phone] CBC 03/04/2010 [facility] White Blood 8.5 3.1-10.7 [address] [facility] Count K/[place] [address] [phone] Red Blood Count 3.85 M/uL Low 3.90-5.40 Hemoglobin 11.3 gm/dL Low 11.6-15.8 Hematocrit 35.2 % Low 36.0-46.1 Mean Cell Volume 91.4 fl 80.9-99.0 Mean Corpuscular HGB 29.4 pg 25.9-32.7 Mean Corpuscular HGB Conc 32.1 g/dL 30.8-34.3 Platelet Count 271 K/uL 155-360 Red Cell Distri Width %CV 13.7 % 11.7-14.4 Mean Platelet Volume 11.4 fL 8.9-12.4 Liver Function Tests 03/03/2010 [facility] Total Protein 7.2 g/dL 6.3-8.0 [address] [place] [address] [phone] Albumin 3.6 g/dL 3.5-5.0 Bilirubin,Total 3.6 mg/dL High 0.2-1.2 Bilirubin,Direct 3.1 mg/dL High 0.1-0.4 Bilirubin,Indirect 0.5 mg/dL 0.0-0.9 Sgot/Ast 355 U/L Critical high 16-40 SGPT/Alt 617 U/L Critical high 30-65 Alkaline Phosphatase 827 U/L Critical high 50-136 Globulin 3.6 gm/dL 1.9-4.3 Alb/Glob 1.0 Laboratory test 03/03/2010 [facility] Lipase 21693 U/L High 28-380 47 finding [address] [place] [address] [phone] CBS W/Automated 03/03/2010 [facility] White Blood 9.1 K/uL 3.1-10.7 Diff [address] [place] [address] [phone] Red Blood Count 4.53 M/uL 3.90-5.40 Hemoglobin 13.4 gm/dL 11.6-15.8 Hematocrit 40.8 % 36.0-46.1 Mean Cell Volume 90.1 fl 80.9-99.0 Mean Corpuscular HGB 29.6 pg 25.9-32.7 Mean Corpuscular HGB Conc 32.8 g/dL 30.8-34.3 Platelet Count 279 K/uL 155-360 Red Cell Distri Width %CV 13.8 % 11.7-14.4 Mean Platelet Volume 10.9 fL 8.9-12.4 Neut% 55.3 % 40.4-72.8 Lymph % 31.4 % 17.0-46.1 [place] % 12.3 % 4.3-13.2 Eo% 0.7 % 0.0-6.6 Bas% 0.3 % 0.0-1.1 Neut# 5.0 K/uL 1.0-7.0 Lymph # 2.9 K/uL 0.8-3.4 [place] # 1.1 K/uL High 0.3-0.9 Eos # 0.1 K/uL 0.0-0.5 Baso # 0.0 K/uL 0.0-0.1 Red Cell Distri Width SD 44.8 fl 3-47 Liver Function Tests 03/02/2010 [facility] Total Protein 7.5 g/dL 6.3-8.0 [address] [place] [address] [phone] Albumin 3.6 g/dL 3.5-5.0 Bilirubin,Total 3.1 mg/dL High 0.2-1.2 Bilirubin,Direct 2.8 mg/dL High 0.1-0.4 Bilirubin,Indirect 0.3 mg/dL 0.0-0.9 Sgot/Ast 338 U/L Critical high 16-40 SGPT/Alt 623 U/L Critical high 30-65 Alkaline Phosphatase 816 U/L Critical high 50-136 Globulin 3.9 gm/dL 1.9-4.3 Alb/Glob 0.9 Laboratory test 03/02/2010 [facility] Amylase 2879 U/L Critical high 18-98 48 finding [address] [place] [address] [phone] Lipase 00980 U/L High 28-380 49 CBC 03/02/2010 [facility] White Blood Count 7.6 K/uL 3.1-10.[address] [place] [phone] Red Blood Count 4.59 M/uL 3.90-5.40 Hemoglobin 13.5 gm/dL 11.6-15.8 Hematocrit 40.8 % 36.0-46.1 Mean Cell Volume 88.9 fl 80.9-99.0 Mean Corpuscular HGB 29.4 pg 25.9-32.7 Mean Corpuscular HGB Conc 33.1 g/dL 30.8-34.3 Platelet Count 280 K/uL 155-360 Red Cell Distri Width %CV 13.6 % 11.7-14.4 Mean Platelet Volume 11.0 fL 8.9-12.4 Protime 03/02/2010 [facility] Protime 12.5 seconds 11.7-15.1 [address] [place] [address] [phone] Inr 0.9 0.8-1.2 50 Liver Function 02/10/2010 [facility] Total Protein 6.0 g/dL Low 6.3-8.0 Tests [address] [place] [address] [phone] Albumin 2.8 g/dL Low 3.5-5.0 Bilirubin,Total 0.4 mg/dL 0.2-1.2 Bilirubin,Direct 0.2 mg/dL 0.1-0.4 Bilirubin,Indirect 0.2 mg/dL 0.0-0.9 Sgot/Ast 20 U/L 16-40 SGPT/Alt 122 U/L High 30-65 Alkaline Phosphatase 315 U/L Critical high 50-136 Globulin 3.2 gm/dL 1.9-4.3 Alb/Glob 0.9 Laboratory test 02/10/2010 [facility] Amylase 41 U/L 18-98 51 finding [address] [place] [address] [phone] CBC 02/10/2010 [facility] White Blood 9.1 K/uL 3.1-10.7 [address] [place] [address] [phone] Red Blood Count 3.83 M/uL Low 3.90-5.40 Hemoglobin 10.9 gm/dL Low 11.6-15.8 Hematocrit 34.5 % Low 36.0-46.1 Mean Cell Volume 90.1 fl 80.9-99.0 Mean Corpuscular HGB 28.5 pg 25.9-32.7 Mean Corpuscular HGB Conc 31.6 g/dL 30.8-34.3 Platelet Count 248 K/uL 155-360 Red Cell Distri Width %CV 12.9 % 11.7-14.4 Mean Platelet Volume 11.2 fL 8.9-12.4 Laboratory test 02/09/2010 [facility] Gallbladder See Note 52 finding [address] [place] [address] [phone] Liver Function 02/09/2010 [facility] Total Protein 5.9 g/dL Low 6.3-8.0 Tests [address] [place] [address] [phone] Albumin 2.8 g/dL Low 3.5-5.0 Bilirubin,Total 0.8 mg/dL 0.2-1.2 Bilirubin,Direct 0.2 mg/dL 0.1-0.4 Bilirubin,Indirect 0.6 mg/dL 0.0-0.9 Sgot/Ast 22 U/L 16-40 SGPT/Alt 151 U/L Critical high 30-65 Alkaline Phosphatase 357 U/L Critical high 50-136 Globulin 3.1 gm/dL 1.9-4.3 Alb/Glob 0.9 Laboratory test 02/09/2010 [facility] Amylase 35 U/L 18-98 53 finding [address] [place] [address] [phone] CBC 02/09/2010 [facility] White Blood 6.7 K/uL 3.1-10.7 [address] [place] [address] [phone] Red Blood Count 3.75 M/uL Low 3.90-5.40 Hemoglobin 10.9 gm/dL Low 11.6-15.8 Hematocrit 34.0 % Low 36.0-46.1 Mean Cell Volume 90.7 fl 80.9-99.0 Mean Corpuscular HGB 29.1 pg 25.9-32.7 Mean Corpuscular HGB Conc 32.1 g/dL 30.8-34.3 Platelet Count 229 K/uL 155-360 Red Cell Distri Width %CV 12.8 % 11.7-14.4 Mean Platelet Volume 12.0 fL 8.9-12.4 Liver Function 02/08/2010 [facility] Total Protein 6.1 g/dL Low 6.3-8.0 Tests [address] [place] [address] [phone] Albumin 2.9 g/dL Low 3.5-5.0 Bilirubin,Total 0.4 mg/dL 0.2-1.2 Bilirubin,Direct 0.2 mg/dL 0.1-0.4 Bilirubin,Indirect 0.2 mg/dL 0.0-0.9 Sgot/Ast 22 U/L 16-40 SGPT/Alt 186 U/L Critical high 30-65 Alkaline Phosphatase 394 U/L Critical high 50-136 Globulin 3.2 gm/dL 1.9-4.3 Alb/Glob 0.9 Laboratory test 02/08/2010 [facility] Amylase 45 U/L 18-98 54 finding [address] [place], [place] [phone] CBC 02/08/2010 [facility] White Blood 6.1 K/uL 3.1-10.7 [address] [place], [place] [address] [phone] Red Blood Count 3.82 M/uL Low 3.90-5.40 Hemoglobin 10.9 gm/dL Low 11.6-15.8 Hematocrit 34.6 % Low 36.0-46.1 Mean Cell Volume 90.6 fl 80.9-99.0 Mean Corpuscular HGB 28.5 pg 25.9-32.7 Mean Corpuscular HGB Conc 31.5 g/dL 30.8-34.3 Platelet Count 222 K/uL 155-360 Red Cell Distri Width %CV 13.1 % 11.7-14.4 Mean Platelet Volume 11.4 fL 8.9-12.4 Laboratory test 02/07/2010 [facility] Lipase 553 U/L High 28-380 55 finding [address] [place], [place] [address] [phone] CBC 02/07/2010 [facility] White Blood 6.8 K/uL 3.1-10.7 [address] [place], [place] [address] [phone] Red Blood Count 3.83 M/uL Low 3.90-5.40 Hemoglobin 11.2 gm/dL Low 11.6-15.8 Hematocrit 34.4 % Low 36.0-46.1 Mean Cell Volume 89.8 fl 80.9-99.0 Mean Corpuscular HGB 29.2 pg 25.9-32.7 Mean Corpuscular HGB Conc 32.6 g/dL 30.8-34.3 Platelet Count 223 K/uL 155-360 Red Cell Distri Width %CV 12.8 % 11.7-14.4 Mean Platelet Volume 11.1 fL 8.9-12.4 Laboratory test 02/07/2010 [facility] Amylase 47 U/L 18-98 56 finding [address] [place], [place] [address] [phone] Liver Function 02/07/2010 [facility] Total Protein 6.2 g/dL Low 6.3-8.0 Tests [address] [place] [address] [phone] Albumin 2.9 g/dL Low 3.5-5.0 Bilirubin,Total 0.5 mg/dL 0.2-1.2 Bilirubin,Direct 0.2 mg/dL 0.1-0.4 Bilirubin,Indirect 0.3 mg/dL 0.0-0.9 Sgot/Ast 36 U/L 16-40 SGPT/Alt 251 U/L Critical high 30-65 Alkaline Phosphatase 454 U/L Critical high 50-136 Globulin 3.3 gm/dL 1.9-4.3 Alb/Glob 0.9 CBC 02/06/2010 [facility] White Blood Count 7.8 K/uL 3.1-10.7 [address] [place] [address] [phone] Red Blood Count 4.11 M/uL 3.90-5.40 Hemoglobin 12.1 gm/dL 11.6-15.8 Hematocrit 36.9 % 36.0-46.1 Mean Cell Volume 89.8 fl 80.9-99.0 Mean Corpuscular HGB 29.4 pg 25.9-32.7 Mean Corpuscular HGB Conc 32.8 g/dL 30.8-34.3 Platelet Count 251 K/uL 155-360 Red Cell Distri Width %CV 13.1 % 11.7-14.4 Mean Platelet Volume 11.2 fL 8.9-12.4 Laboratory test finding 02/06/2010 [facility] Amylase 66 U/L 18-98 57 [address] [place] [address] [phone] Lipase 583 U/L High 28-380 58 Liver Function Tests 02/06/2010 [facility] Total Protein 6.8 g/dL 6.3-8.0 [address] [place] [address] [phone] Albumin 3.3 g/dL Low 3.5-5.0 Bilirubin,Total 0.6 mg/dL 0.2-1.2 Bilirubin,Direct 0.3 mg/dL 0.1-0.4 Bilirubin,Indirect 0.3 mg/dL 0.0-0.9 Sgot/Ast 76 U/L High 16-40 SGPT/Alt 363 U/L Critical high 30-65 Alkaline Phosphatase 616 U/L Critical high 50-136 Globulin 3.5 gm/dL 1.9-4.3 Alb/Glob 0.9 LDL Cholesterol 02/05/2010 [facility] Cholesterol 182 mg/dL 120-200 Profile [address] [place], [place] [address] [phone] Triglycerides 67 mg/dL 0-210 HDL Cholesterol 49 mg/dL 32-96 LDL-Cholesterol 120 mg/dL 62-185 CBC 02/05/2010 [facility] White Blood Count 7.2 K/uL 3.1-10.7 [address] [place], [place] [address] [phone] Red Blood Count 4.53 M/uL 3.90-5.40 Hemoglobin 13.0 gm/dL 11.6-15.8 Hematocrit 39.6 % 36.0-46.1 Mean Cell Volume 87.4 fl 80.9-99.0 Mean Corpuscular HGB 28.7 pg 25.9-32.7 Mean Corpuscular HGB Conc 32.8 g/dL 30.8-34.3 Platelet Count 268 K/uL 155-360 Red Cell Distri Width %CV 13.3 % 11.7-14.4 Mean Platelet Volume 11.5 fL 8.9-12.4 Basic Metabolic Panel 02/05/2010 [facility] Glucose 144 mg/dL High 76-115 [address] [place], [place] [address] [phone] BUN 11 mg/dL 5-23 Creatinine 0.8 mg/dL 0.5-1.4 Glom Filtration Rate, Estimate >60 mL/min >60 If >60 mL/min >60 59 BUN/Creat 13.7 Sodium 137 mEq/L 136-145 Potassium 3.4 mEq/L Low 3.5-5.1 Chloride 99 mEq/L 98-107 Carbon Dioxide 30 mEq/L 21-32 Anion Gap 11 mEq/L 8-16 Calcium 8.6 mg/dL 8.5-10.1 Liver Function Tests 02/05/2010 [facility] Total Protein 7.0 g/dL 6.3-8.0 [address] [place] [address] [phone] Albumin 3.3 g/dL Low 3.5-5.0 Bilirubin,Total 0.8 mg/dL 0.2-1.2 Bilirubin,Direct 0.3 mg/dL 0.1-0.4 Bilirubin,Indirect 0.5 mg/dL 0.0-0.9 Sgot/Ast 197 U/L Critical high 16-40 SGPT/Alt 533 U/L Critical high 30-65 Alkaline Phosphatase 754 U/L Critical high 50-136 Globulin 3.7 gm/dL 1.9-4.3 Alb/Glob 0.9 Protime 02/05/2010 [facility] Protime 13.6 seconds 11.7-15.1 [address] [place] [address] [phone] Inr 1.0 0.8-1.2 60 1 R30.0 R35.0 2 MIXED URETHRAL SHANA 3 URINE, CLEAN CATCH 4 N39.0 R94.5 5 10,000 - 50,000 CFU/mL 6 Elevated levels of HbA1c suggest the need for more aggressive treatment of glycemia. The [place] [employer] recommends that a primary goal of therapy should be a HbA1c of <7% and that physicians should re-evaluate the treatment regimen in patients with HbA1c values consistently >8%. 7 Note: Persistent reduction for 3 months or more in an eGFR <60 mL/min/1.73 m2 defines CKD. Patients with eGFR values >/=60 mL/min/1.73 m2 may also have CKD if evidence of persistent proteinuria is present. The original MDRD equation for estimated GFR is not valid for patients less than 18 years of age. Additional information may be found at www.kdoqi.org. 8 VICENTE BERMUDEZ, PT HAS MS, UTI 9 Note: Persistent reduction for 3 months or more in an eGFR <60 mL/min/1.73 m2 defines CKD. Patients with eGFR values >/=60 mL/min/1.73 m2 may also have CKD if evidence of persistent proteinuria is present. The original MDRD equation for estimated GFR is not valid for patients less than 18 years of age. Additional information may be found at www.kdoqi.org. 10 0.0 - 0.045 ng/mL: Normal 0.046 - 0.5 ng/mL: Suggestive 0.6 - 1.5 ng/mL: Consistent 11 URINE, CLEAN CATCH 12 CULTURE TO FOLLOW 13 URINE, CLEAN CATCH 14 ESCHERICHIA COLI 15 > 100,000 CFU/mL 16 10,000 - 50,000 CFU/mL 17 POSSIBLE UTI, BLOOD IN URINE 18 URINE, CLEAN CATCH 19 CULTURE TO FOLLOW 20 URINE, CLEAN CATCH 21 10,000 - 50,000 CFU/mL 22 Because ethnic data is not always readily available, this report includes an eGFR for both -Americans and non- Americans. The National Kidney Disease Education Program (NKDEP) does not endorse the use of the MDRD equation for patients that are not between the ages of 18 and 70, are , have extremes of body size, muscle mass, or nutritional status, or are non- or non-. According to the National Kidney Foundation, irrespective of diagnosis, the stage of the disease is based on the level of kidney function: Stage Description GFR(mL/min/1.73 m(2)) 1 Kidney damage with normal or decreased GFR 90 2 Kidney damage with mild decrease in GFR 60-89 3 Moderate decrease in GFR 30-59 4 Severe decrease in GFR 15-29 5 Kidney failure <15 (or dialysis) 23 Organism 1 ! URETHRAL SHANA Quantity ! 50,000 - 100,000 CFU/mL 24 Organism 1 ! ESCHERICHIA COLI Quantity ! > 100,000 CFU/mL Organism 2 ! URETHRAL SHANA Quantity ! > 100,000 CFU/mL ESCHERICHIA COLI Target Route Dose M.I.C. RX AB COST ------ ----- -------- ------ -- ------ NITROFURANTOIN 32 S TRIMETHOPRIM/SULFAMETHOXAZOLE >=320 R AMPICILLIN >=32 R CEFAZOLIN <=4 S AMPICILLIN/SULBACTAM >=32 R CIPROFLOXACIN >=4 R PIPERACILLIN/TAZOBACTAM <= 4 S CEFTAZIDIME <=1 S CEFTRIAXONE <=1 S CEFEPIME <=1 S LEVOFLOXACIN >=8 R IMIPENEM <=0.25 S GENTAMICIN BLOOD IV 80 mg >=16 R 2.63 TOBRAMYCIN BLOOD IV 80 mg 8 I 1.56 25 *THE SUBMITTED URINE SPECIMEN WAS SCREENED AT THE LISTED [facility] INITIAL TEST LEVEL Amphetamines 1000 ng/mL Barbiturates 200 ng/mL Benzodiazepines 200 ng/mL Cannabinoids 50 ng/mL Cocaine Metabolite 300 ng/mL Methadone 300 ng /mL Opiates 300 ng/mL 26 COLONY COUNT ! 80,000-100,000 CFU/ml Organism 1 ! ESCHERICHIA COLI QUANTITY ! MANY Organism 2 ! URETHRAL SHANA ESCHERICHIA COLI Target Route Dose M.I.C. RX AB COST ------ ----- -------- ------ -- ------ NITROFURANTOIN 32 S TRIMETHOPRIM/SULFAMETHOXAZOLE >=320 R AMPICILLIN >=32 R CEFAZOLIN <=4 S AMPICILLIN/SULBACTAM 16 I CIPROFLOXACIN >=4 R PIPERACILLIN/TAZOBACTAM <=4 S CEFTAZIDIME <=1 S CEFTRIAXONE <=1 S CEFEPIME <=1 S LEVOFLOXACIN >=8 R IMIPENEM <=0.25 S GENTAMICIN BLOOD IV 80 mg >=16 R 2.63 TOBRAMYCIN BLOOD IV 80 mg 4 S 1.56 27 FAX RESULTS TO JOSH VALDIVIA MD [phone] FAX RESULTS TO JOSH VALDIVIA MD [phone] QUERY: Is the Patient Fasting? N 29 Performed at: [address] [id number] Cabinet Mounter: Mark Chang MD, Phone: [phone] Note: Persistent reduction for 3 months or more in an eGFR <60 mL/min/1.73 m2 defines CKD. Patients with eGFR values >/=60 mL/min/1.73 m2 may also have CKD if evidence of persistent proteinuria is present. The original MDRD equation for estimated GFR is not valid for patients less than 18 years of age. Additional information may be found at www.kdoqi.org. 31 Cytology Laboratory [address], [address] [place] [address] CYTOLOGY REPORT Name: Desire Velazquez : 1965 (Age: 47) Sex: F Location: [facility] Med. Rec. # Date Collected: 05/01/2013 Billing #: [id number] Date Received: 05/01/2013 Physician(s): JOHANNA DOWNING RPA-C Source of Specimen: ENDOCERVICAL/ ECTOCERVICAL THIN PREP Clinical Information: Date of Last Menstrual Period: None Provided Menstrual History: Post menopausal: 04/06/13 Interpretation: NEGATIVE FOR INTRAEPITHELIAL LESION OR MALIGNANCY. Specimen Adequacy: SATISFACTORY FOR EVALUATION. Additional Findings: ENDOCERVICAL/TRANSFORMATION ZONE PRESENT. mas Electronic Signature JANE Cantu (ASCP) Reported: 05/04/2013 [facility] ICD-9 Code(s) V72.31 32 Note: Persistent reduction for 3 months or more in an eGFR <60 mL/min/1.73 m2 defines CKD. Patients with eGFR values >/=60 mL/min/1.73 m2 may also have CKD if evidence of persistent proteinuria is present. The original MDRD equation for estimated GFR is not valid for patients less than 18 years of age. Additional information may be found at www.kdoqi.org. [address] [place] [address], [address] [place] [address] CYTOLOGY REPORT Name: Desire Velazquez : 1965 (Age: 46) Sex: F Location: [facility] Med. Rec. # Date Collected: 04/12/2012 Billing #: [id number] Date Received: 2012 Physician(s): JOHANNA LUNA Source of Specimen: ENDOCERVICAL/ ECTOCERVICAL THIN PREP Clinical Information: Date of Last Menstrual Period: 04/03/12 Menstrual History: Regular Specimen Adequacy: SATISFACTORY FOR EVALUATION. NO ENDOCERVICAL/TRANSFORMATION ZONE. General Categorization: NEGATIVE FOR INTRAEPITHELIAL LESION OR MALIGNANCY. lgs Electronic Signature JANE Calderón (ASCP) Reported: 04/14/2012 [facility] ICD-9 Code(s) V76.2 34 RUN DATE: 04/08/12 [facility] LAB LIVE PAGE 1 RUN TIME: 6[address] [place], [place] [address] Specimen Inquiry ----- Name: DESIRE VELAZQUEZ : [address]: Johanna Zavala PA Acct: [id number] Unit: [id number] AGE: 46 Location: [facility] Re04/06/12 SEX: F Status: REG REF ----- SPEC: [id number] EDEL: 04/06/[address]: Johanna Zavala PA REQ: [id number] RECD: 04/06/12 STATUS: COMP _ SOURCE: URINE SPDESC: ORDERED: Urine Culture ----- Procedure Result Verified Site ----- Urine Culture Final 04/08/12-951 ML Organism 1 NORMAL SHANA [place] Count 50-75,000 (Many) CFU/ML ----- END OF REPORT * ML=Testing performed at Main Lab DEPARTMENT OF PATHOLOGY, [address] [place] [address] Natalio Villalobos M.D. Director [facility] Permit # [id number] THERAPEUTIC TARGET FOR THE TREATMENT OF DIABETES MELLITUS PATIENTS IS <7% HBA1C, AND IN SELECTIVE PATIENTS <6.0%. PLEASE REFER TO [place] DIABETIC CARE GUIDELINES FOR FURTHER INFORMATION. 36 Test Performed by: [address] [address] Butcher Supervisor: Waylon Paulson III, M.D. 37 Because ethnic data is not always readily available, this report includes an eGFR for both -Americans and non- Americans. The National Kidney Disease Education Program (NKDEP) does not endorse the use of the MDRD equation for patients that are not between the ages of 18 and 70, are , have extremes of body size, muscle mass, or nutritional status, or are non- or non-. According to the National Kidney Foundation, irrespective of diagnosis, the stage of the disease is based on the level of kidney function: Stage Description GFR(mL/min/1.73 m(2)) 1 Kidney damage with normal or decreased GFR 90 2 Kidney damage with mild decrease in GFR 60- 89 3 Moderate decrease in GFR 30-59 4 Severe decrease in GFR 15-29 5 Kidney failure <15 (or dialysis) 38 ------- RUN DATE: 04/09/11 [facility] NMI LIVE PAGE 1 RUN TIME: 1138 Specimen Inquiry RUN USER: INTERFACE ----- Name: DESIRE VELAZQUEZ Status: REG REF Re04/07/11 Age/Sex: 45/F Unit#: [id number] Location: [facility] : 65 ----- SPEC #: [id number] EDEL: 04/07/11 STATUS: COMP REQ #: [id number] RECD: 04/07/[address] SOURCE: URINE ENTR: 04/07/11 GREYSON QUEVEDO: TEA: ORDERED: URINE C S QUERIES: SPECIMEN DESCRIPTION: URINE, RANDOM ----- Procedure Result Verified Site ----- > URINE CULTURE SENSITIVI Final 04/09/11-1138 ML Organism 1 ESCHERICHIA COLI COLONY COUNT >100,000 ORGANISMS/ML (MANY) 1. ESCHERICHIA COLI RX M.I.C. ------ --------- AMIKACIN S <=2 LEVOFLOXACIN S <=0.12 AMPICILLIN S <=2 CEFAZOLIN S <=4 CEFTRIAXONE S <=1 CIPROFLOXACIN S <=0.25 GENTAMICIN S <=1 TIGECYCLINE S <=0.5 CEFTAZIDIME S <=1 IMIPENEM S <=1 NITROFURANTOIN S <=16 TRIMETH- SULFA S <=20 *These antibiotics are not available in the [facility] Formulary. Contact the Microbiology Department for any additional antibiotic reporting. ----- [facility] Permit #[id number] [facility] [employer] [place] [address] ----- DEPARTMENT OF PATHOLOGY, [address] [place] [address] [place] Permit #[id number] Natalio Villalobos M.D. Director Jose Black M.D. Learning Manager ----- 39 Cytology Laboratory [address] [place] [address], [address] [place] [address] CYTOLOGY REPORT Name: Desire Velazquez : 1965 (Age: 45) Sex: F Location: [facility] Soc. Sec. #: [id number] Date Collected: 04/07/2011 Billing #: [id number] Date Received: 04/07/2011 Physician(s): JOHANNA LUNA Source of Specimen: ENDOCERVICAL/ECTOCERVICAL THIN PREP Clinical Information: Date of Last Menstrual Period: 03/30/11 Menstrual History: Regular Specimen Adequacy: SATISFACTORY FOR EVALUATION. ADEQUATE ENDOCERVICAL/TRANSFORMATION ZONE. General Categorization : NEGATIVE FOR INTRAEPITHELIAL LESION OR MALIGNANCY. lar Electronic Signature JANE Lennon (ASCP) Reported: 04/09/2011 Also seen by:JANE Lennon ( ASCP) Cytology Outreach [facility] ICD-9 Code(s) V76.2 40 ------- RUN DATE: 03/18/11 [facility] NMI LIVE PAGE 1 RUN TIME: 1201 Specimen Inquiry RUN USER: INTERFACE ----- Name: DESIRE VELAZQUEZ Status: REG REF Re03/16/11 Age/Sex: 45/F Unit#: [id number] Location: : 65 ----- SPEC #: [id number] EDEL: 03/16/11 STATUS: COMP REQ #: [id number] RECD: 03/16/[address]: Lucas [facility],Johanna Eckert SOURCE: URINE ENTR: 03/16/[address]: Bernabe MURO,Josh Fitch [facility]: ORDERED: URINE C S QUERIES : SPECIMEN DESCRIPTION: URINE, RANDOM ACT WKST: UR 03/18/11 #1 ----- Procedure Result Verified Site ----- > URINE CULTURE SENSITIVI Final 03/18/11-1200 ML SPECIMEN CONTAINS NORMAL URETHRAL OR PERINEAL SHANA AND DOES NOT SUGGEST URINARY TRACT INFECTION ----- ML - [facility] State Permit #[id number] [facility] [employer] [place] [address] ----- DEPARTMENT OF PATHOLOGY, [address] [place] [address] [facility] Permit #[id number] Natalio Villalobos M.D. Director Jose Black M.D. Learning Manager ----- 41 THERAPEUTIC TARGET FOR THE TREATMENT OF DIABETES MELLITUS PATIENTS IS <7% HBA1C, AND IN SELECTIVE PATIENTS <6.0%. PLEASE REFER TO [place] DIABETIC CARE GUIDELINES FOR FURTHER INFORMATION. 42 Anion gap measurement may be of limited value in the presence of any alkalosis, especially in a combined acid base disorder. . 43 A metabolite of Naproxen, O-desmethylnaproxen, has been shown to interfere with the Jendrassik-Dru method for measuring total bilirubin. Samples from patients who have taken Naproxen have shown spurious elevation in total bilirubin levels. 44 Because ethnic data is not always readily available, this report includes an eGFR for both -Americans and non- Americans. The National Kidney Disease Education Program (NKDEP) does not endorse the use of the MDRD equation for patients that are not between the ages of 18 and 70, are , have extremes of body size, muscle mass, or nutritional status, or are non- or non-. According to the National Kidney Foundation, irrespective of diagnosis, the stage of the disease is based on the level of kidney function: Stage Description GFR(mL/min/1.73 m(2)) 1 Kidney damage with normal or decreased GFR 90 2 Kidney damage with mild decrease in GFR 60- 89 3 Moderate decrease in GFR 30-59 4 Severe decrease in GFR 15-29 5 Kidney failure <15 (or dialysis) 45 Please note updated reference range, effective 10/16/09 46 QUERY: @CONSTRVCT Pat ID: QUERY: @CONSTRVCT Req #: 47 CHECKED & CALLED LIPASE ISAIAH H AT 0756 03/03/10 48 QUERY: @CONSTRVCT Pat ID: QUERY: @CONSTRVCT Req #: 49 QUERY: @CONSTRVCT Pat ID: QUERY: @CONSTRVCT Req #: 50 THERAPEUTIC INR RANGE: 2.0 - 3.0 DVT, Pulmonary embolus, prophylaxis against venous thrombosis or systemic embolization in high risk patients. 2.5 - 3.5 Mechanical heart valves 51 QUERY: @CONSTRVCT Pat ID: QUERY: @CONSTRVCT Req #: 52 OPERATION/PROCEDURE Lap. cholecystectomy DIAGNOSIS: "GALLBLADDER": CHRONIC CHOLECYSTITIS, AND CHOLELITHIASIS. NO EVIDENCE OF ACUTE INFLAMMATION, DYSPLASIA NOR NEOPLASIA APPRECIATED. CARMELA/oleksandr 1221 GROSS The specimen is received in a single container additionally labeled "GALLBLADDER". This contains a grossly recognizable opened gallbladder. This has a bateman pink shiny smooth surface and overall measures 8.0 x 2.6 x 0.7 cm. in overall dimensions. There is not a visible wall defect. The wall has a uniform thickness of 0.1 cm. The mucosal surface is red green, velvety smooth and unremarkable. There are trabeculations noted. No colmenares reticular discoloration of cholesterolosis is noted. Fifty or more stones are noted with a diameter up to 0.4 cm. They do not obstruct the neck. Monument Stonecutter sections are submitted within a single cassette. WS/oleksandr MICROSCOPIC Sections show gallbladder mucosa lined by columnar epithelium with focal synechia, and Rokitansky-Aschoff sinus formation. The submucosa has a mild infiltrate of lymphocytes and plasma cells. The muscular wall is slightly fibrotic and hypertrophied. PRE OPERATIVE DIAGNOSIS Gallstone pancreatitis REVIEW CODE CODE: I MARK Mccallum MD 02/10/10 53 QUERY: @CONSTRVCT Pat ID: QUERY: @EMR Req #: 54 QUERY: @EMR Pat ID: QUERY: @EMR Req #: 55 [facility] (comment via IML) QUERY: @EMR Pat ID: QUERY: @EMR Req #: 56 QUERY: @EMR Pat ID: QUERY: @EMR Req #: 57 LINE DRAW QUERY: @CONSTRVCT Pat ID: QUERY: @EMR Req #: 58 LINE DRAW QUERY: @CONSTRVCT Pat ID: QUERY: @EMR Req #: 59 Note: Persistent reduction for 3 months or more in an eGFR <60 mL/min/1.73 m2 defines CKD. Patients with eGFR values >/=60 mL/min/1.73 m2 may also have CKD if evidence of persistent proteinuria is present. The original MDRD equation for estimated GFR is not valid for patients less than 18 years of age. Additional information may be found at www.kdoqi.org. 60 THERAPEUTIC INR RANGE: 2.0 - 3.0 DVT, Pulmonary embolus, prophylaxis against venous thrombosis or systemic embolization in high risk patients. 2.5 - 3.5 Mechanical heart valves Procedures Date Code Description Status 01/28/2014 88200 Colonoscopy Completed 01/28/2014 99585316 Colonoscopy Completed 04/12/2012 00196 Mammography Unilateral Completed 04/12/2012 22092 Remove Impacted Cerumen Completed 04/07/2011 66008 Remove Impacted Cerumen Completed 03/03/2010 72380 EKG Interpretation And Report Only Completed 03/03/2010 49757 Anesthesia, Upper GI Endoscopic Surgery Completed 02/09/2010 31527 Laparoscopy; cholecystectomy Completed 02/09/2010 00872 Anesthesia, Upper Abdomen Surgery Not Otherwise Spec Completed 02/05/2010 96080 EKG Interpretation And Report Only Completed Encounters Type Date Location Provider Dx Diagnosis Office Visit 06/05/2018 Family Medicine Anh Helms MD, R30.0 Dysuria 10:00a [facility] PHD R35.0 Frequency of micturition G35 Multiple sclerosis M25.561 Pain in right knee R03.0 Elevated blood-pressure reading, w/o diagnosis of htn Office Visit 05/02/2018 10:15a [facility], G35 Multiple Office [facility] sclerosis N32.81 Overactive bladder N39.0 Urinary tract infection, site not specified R94.5 Abnormal results of liver function studies K59.00 Constipation, unspecified Z12.31 Encntr screen mammogram for malignant neoplasm of breast Plan of Treatment 10/02/2018 - Anh Helms MD, PHDI10 Essential (primary) hypertensionComments:PRESSURE POINTS1 What high blood pressure is. Blood pressure is the force that your blood exerts onthe helton of the arteries it flows through, just like water flowing through a garden hose pushes against the hose??s helton. Your blood pressure consists of two numbers. ??Systolic is the pressure on blood vessel helton during heart beats,?? says Shane Becker, professor of cardiovascular disease prevention at the [employer]. ??Diastolic is the pressure between beats,?? so it??s lower. When people have high blood pressure??also called hypertension??it??s often because blood vessels are too rigid to expand when the heart pumps. It??s as though the hose were made of glass instead of rubber. 2 Everyone is at risk. Why worry about high blood pressure if you haven??t been diagnosed with it? Because, odds are, you eventually will be. ??Over time, 90 percent of people in this country develop hypertension,?? says Truman Guevara, professor of preventive medicine at the [employer]. That??s because blood pressure typically creeps up as youage. In the Atherosclerosis Risk in Communities study, which followed more than 15,000 Americans aged 45 to 64, average systolic blood pressure natalio by five points in five years.1 ??Blood pressures drift upward as people get older and they??re exposed to long-term excess sodium,?? explains Ismael. ??That??s why almost all adults are going to get blood pressures that put them at higher risk for heart disease and stroke.?? But most hypertension is preventable with a healthy diet and exercise, he adds.3 Your risk starts to rise at any blood pressure above ?? normal.?? Doctors used to diagnose patientswith hypertension when their systolic pressure reached NORMAL BLOOD PRESSURE <120/<80 * Recommendations : Healthy lifestyle choices and yearly checks.ELEVATED BLOOD PRESSURE 120-129/& lt;80 * Recommendations: Healthy lifestyle changes, reassessed in 3-6 months.HIGH BLOOD PRESSURE / STAGE 1 130-139/80-89 * Recommendations: 10-year heart disease and stroke risk assessment. If less than 10% risk, lifestyle changes, reassessed in 3-6 months. If higher, lifestyle changes and medication with monthly follow-ups until blood pressure is controlled. HIGH BLOOD PRESSURE / STAGE 2 >140/>90 * Recommendations: Lifestyle changes and 2 different classes of medicine, with monthly follow-ups until blood pressure is controlled.How much diet and exercise can lower your blood pressure Got high blood pressure? You??re in good company.Nearly half of [place] adults now have hypertension, according to recent guidelines from the [place] [employer] and the [place] [employer].That means that many people who had ??prehypertension?? according to the old guidelines now have ??stage 1 hypertension.?? Most of them don??t need to start taking drugs to lower their pressure (that depends on other risk factors). Instead, the guidelines recommend a healthy lifestyle.Why? Because it works. Here??s how much your systolic pressure (the higher of your two blood pressure numbers) could fall with diet and exercise, according to the new guidelines:1. Eat a DASH diet: 11 pointsDon??t want to count servings?Start by filling half your plate with fruits and vegetables.A DASH-style diet does it all: protects your heart, piles on the fruits and veggies, and cuts unhealthy carbs. It??s not only low in saturated fat, sugar, and salt, it??s also rich in nutrients like potassium, magnesium, calcium, and fiber.Plus, DASH works for omnivores or vegetarians.2. Exercise: 5 pointsAny kind of exercise helps.All formsof exercise will lower blood pressure, but the best evidence is for aerobic activity. Aim for 90 to 150 minutes a week of aerobics (brisk walking, biking, running, etc.) and/or resistance training (biceps curls, leg presses, etc.).If you??re starting with walking, here??s how to ramp up the intensity gradually.3. Lose weight: 5 pointsDropping extra pounds can lower your pressure.Losing excess weight helps lower blood pressure. Expect about a 1 point drop in systolic pressure for every 2 pounds you lose.4. Cut salt: 5 pointsMost sodium comes from packaged and restaurant foods that don??t even taste salty.To lower blood pressure, cut your sodium by 1,000 milligrams a day, ideally to 1,500 mg a day. Start with these seven foods.Bread. About 100 to 200 mg of sodium per slice is typical. TopFun and some other brands make it easy to stay at the low end.Cheese. Most types have 150 to 250 mg ofsodium per ounce. Try Qatari (just 40 to 60 mg) or fresh mozzarella (80 to 100 mg) or just 1 ??slim cut?? or ??thin ?? slice of your favorite variety.Poultry. The salt solution that??s often added to rawchicken or turkey can add 120 mg of sodium to the poultry??s 80 mg of (naturally occurring) sodium. So avoid poultry with labels like ??Contains up to 15% of a solution.??Deli meats. Just 2 oz. can pile 500 to 700 mg of sodium on your sandwich. Get Boar??s Head??s (or another brand??s) ??low-sodium? ? meats that are sliced at the deli counter (about 50 to 80 mg in 2 oz.).Soup. Most soups deliver 600 to 900 mg of sodium per cup. Try Imagine, Panola, Dr. Aaron??s, Garima??s Organic, or Aerospace Project Manager Isaac??s ??Light in Sodium?? or ??Reduced Sodium?? soups instead (200 to 400 mg).Pizza. You can easily get 1,000 mg of sodium in 2 slices. Go light on the cheese, and replace meat with veggies (not olives).Restaurant entre??es. Many pack 1,000 to 2,000 mg of sodium. Save half for later. And add a side salad or other veggies to boost potassium.5. Get more potassium: 4 to 5 pointsAnother reason to eat more vegetables: potassium.The goal: Get 3,500 to 5,000 milligrams of potassium a day. You??ll get the most bang for your calorie ortiz with fruits and vegetables. Some examples: Calories Potassium (mg):Baked potato with skin (1 small) 130 750 Beet greens (?? cup cooked) 20 650 Yellowfin tuna (4 oz. cooked) [id number] Sweet potato with skin (1 small) 130 540 Wild Coho salmon (4 oz. cooked) 160 490 Spinach (?? cupcooked) 20 420 Banana (1) 110 420 Low-fat plain yogurt (6 oz.) 110 400 Fat-free milk (1 cup) 80 380 Cantaloupe (??) 50 370 Lentils (?? cup cooked) 120 370 [place] beans ( ?? cup cooked) 120 370 Tomato sauce (?? cup) 30 360 Avocado (?? cup) 120 360 Spinach (2 cups raw) 10 340 Shelled edamame (?? cup cooked) 100 340 [place] or nectarine (1) 60 290 [place]ton sprouts (?? cup cooked) 30 250 [place] (1) 70 240 Wes lettuce (2 cups raw) 10 230 Apple (1) 100 200 6. Limit alcohol: 4 pointsLimiting alcohol helps keep your pressure in check.If you drink, stop at one drink a day for women or two for men.Find this article interesting and useful? Order a copy of Safe & Easy Steps to Lower Your Blood Pressure. Nine out of 10 Americans will eventually have high blood pressure and, with it, an increased risk of stroke, heart attack, diabetes, dementia, and more. Eating the right diet, losing weight, and exercising can keep your pressure under control. And, if you do have hypertension, it can lower your pressureas much as? ?or more than??prescription drugs. This booklet, from the editors of [employer], shows you how. (48 pages)Dr. Helms Can Print this out for you.The information in this post first appeared in [employer] in March 2017.WHAT WORKS? If you have high blood pressure, here??s roughly how much of a drop in systolic pressure you can expect from changes in diet and from exercise.Advice ~ What It Means ~ Typical Drop in Systolic Blood Pressure: Maintain a Normal Weight ~ Lose??or don??t gain??excess weight ~ 5 points for every 10 pounds you lose. Follow a DASH Diet ~ Eat a diet: ?? rich in vegetables & fruits ?? that includes whole grains, low-fat dairy, poultry, fish, beans, nuts, & oils ?? low in sugar & red meat ~ 11 pointsCut Sodium ~ Consume no more than 2,400??milligrams a day (1,500 mg a day lowers pressure even more)~ 5 pointsBoost Potassium ~ Shoot for 3,500 to 5,000 milligrams a day, mostly from fruits and vegetables ~ 4-5 pointsExercise ~ Doat least 30 minutes of aerobic activity (like brisk walking) most days of the week ~ 5 pointsLimitAlcohol ~ Men: No more than 2 drinks a day Women: No more than 1 drink a day ~ 4 pointsFollow up:2 week follow up blood pressure bookN32.81 Overactive bladderNew Medication:Saps [employer] Incontinence Underpads 30"X36" 30" X36" - every 4 hours as neededIncontinence Brief Large - every 4 hours as ipttvxU33.0 Frequency of micturitionNew Medication:Saps [employer] Incontinence Underpads 30"X36" 30" X36" - every 4 hours as neededNew Labs:Ua RFX Micro & Culture II, Ordered: 10/02/18Protein/Creatinine Ratio,Urine, Ordered: 10/02/18G35 Multiple sclerosisNew Medication:Saps Health Incontinence Underpads 30"X36" 30" X36" - every 4 hours as qsuccuP46.561 Pain in right kneeNew Medication:Tylenol 325 mg - 2 tabs as needed for pain or discomfort every 4 hours as neededArnicare - apply to affected area four times a day pain , swelling, bruisingOscal 500/200 D-3 500-200 mg-Unit - 1 tab by mouth twice a dayNew Orders:Knee Brace, [place] II, Wrap Around , Regular Large, Ordered: 11/13R30.0 DysuriaNew Labs:Urine Culture, Ordered: 10/02/18AllComments:Try tylenol ARthritis strength. Ibuprofen can worsen blood pressure Ice, heat, compression wrap.
[2018-10-12 20:09] LABS: Hematocrit 41 % (35-47); Hemoglobin 13.9 g/dL (12.0-16.0); Mean Corpuscular HGB Conc 34 g/dL (31-36); Mean Corpuscular Hemoglobin 29 pg (27-31); Mean Corpuscular Volume 87 fL (80-97); Mean Platelet Volume 8.2 fL (7.4-10.4); Platelet Count 276 10^3/uL (150-450); Red Blood Count 4.75 10^6 /uL (3.70-4.87); Red Cell Distribution Width 13 % (10-15); White Blood Count 5.4 10^3/uL (3.5-10.8)
--- NOTE | 2018-10-12 20:23 | ED ---
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 Kidd, neurologist, told the pt to come into the ED due to her multiple sclerosis relapse. Pt is taking Avonex for her multiple sclerosis. She states she has incontinence problems due to her multiple sclerosis. The patient rates the pain 6/10 in severity. Symptoms aggravated by nothing. Symptoms alleviated by nothing. Patient reports fever, blisters, chills, right knee pain, difficulty ambulating, myalgia of her entire body, and is able to urinate. She uses a scooter and walker to ambulate. Patient denies cough. - History of Current Complaint Chief Complaint: EDWeakness Stated Complaint: 3 DAY IV FOR MS, SENT BY NEURO PER PT Time Seen by Provider: 10/12/18 19:37 Hx Obtained From: Patient Hx Last Menstrual Period: n/a Onset/Duration: Started weeks ago - started 2 months ago, Still Present, Worse Since - 2 months ago Timing: Constant Onset Severity: Moderate Current Severity: Moderate Pain Intensity: 6 Pain Scale Used: 0-10 Numeric Character: Other: - weakness of the left side of her body. Aggravating: Nothing Alleviating: Nothing Associated Signs and Symptoms: Positive: Weakness - left-sided body weakness, Pain - right knee pain, Incontinent Bladder/Bowel, Fever - with chills - Allergy/Home Medications Allergies/Adverse Reactions: Allergies Allergy/AdvReac Type Severity Reaction Status Date / Time environmntal Allergy Unknown Uncoded 10/12/18 19:31 Reaction Details Home Medications: Home Medications Baclofen TAB* [Lioresal TAB*] 20 mg PO BEDTIME 10/12/18 [History Confirmed ] Cholecalciferol (Vitamin D3) [Vitamin D3] 1,000 unit PO BID 10/12/18 [History Confirmed 10/12/18] Gabapentin CAP(*) [Neurontin 300 CAP(*)] 600 mg PO BID 10/12/18 [History Confirmed 10/12/18] Gabapentin CAP(*) [Neurontin 300 CAP(*)] 900 mg PO BEDTIME 10/12/18 [History Confirmed 10/12/18] Triamterene/HCTZ 37.5-25 MG* [Dyazide CAP*] 1 cap PO DAILY 10/12/18 [History Confirmed 10/12/18] Vitamin K2 45 mcg PO BID 10/12/18 [History Confirmed 10/12/18] PMH/Surg Hx/FS Hx/Imm Hx Previously Healthy: No Sensory History: Denies: Hx Legally Blind, Hx Hearing Problem EENT History: Denies: Hx Deafness Neurological History: Reports: Other Neuro Impairments/Disorders - has multiple sclerosis - Surgical History Surgical History: Yes Surgery Procedure, Year, and Place: Tonsillectomy, Infectious Disease History: No Infectious Disease History: Denies: Traveled Outside the [place] in Last 30 Days - Family History Known Family History: Positive: Other - [place] - Social History Alcohol Use: Occasionally Hx Substance Use: No Substance Use Type: Reports: None Hx Tobacco Use: Yes Smoking Status (MU): Former Smoker Review of Systems Constitutional: Other - positive - weakness in the left side of her body, difficulty ambulating Positive: Fever, Chills Negative: Cough Positive: incontinence - from her multiple sclerosis Musculoskeletal: Other - positive - right knee pain Positive: Myalgia - all over body Skin: Other - positive - blisters All Other Systems Reviewed And Are Negative: Yes Physical Exam - Summary Physical Exam Summary: VITAL SIGNS: Reviewed. GENERAL: Patient is morbidly obese FEMALE who is lying comfortable in a wheelchair. Left sided weakness, patient is not in any acute respiratory distress. HEAD AND FACE: No signs of trauma. No ecchymosis, hematomas or skull depressions. No sinus tenderness. EYES: PERRLA, EOMI x 2, No injected conjunctiva, no nystagmus. EARS: Hearing grossly intact. Ear canals and tympanic membranes are within normal limits. MOUTH: Oropharynx within normal limits. NECK: Supple, trachea is midline, no adenopathy, no JVD, no carotid bruit, no c- spine tenderness, neck with full ROM CHEST: Symmetric, no tenderness at palpation LUNGS: Clear to auscultation bilaterally. No wheezing or crackles. CVS: Regular rate and rhythm, S1 and S2 present, no murmurs or gallops appreciated. ABDOMEN: Soft, non-tender. No signs of distention. No rebound no guarding, and no masses palpated. Bowel sounds are normal. EXTREMITIES: Lower extremity weaker than upper extremity, pt states this is baseline but this is worse now. Weakness of right leg. FROM in all major joints , no edema, no cyanosis or clubbing. NEURO: Alert and oriented x 3. No acute neurological deficits. Speech is normal and follows commands. SKIN: Dry and warm Triage Information Reviewed: Yes Vital Signs On Initial Exam: Initial Vitals Temp Pulse Resp BP Pulse Ox 98.7 F 78 18 178/103 98 10/12/18 18:37 10/12/18 18:37 10/12/18 18:37 10/12/18 18:37 10/12/18 18:37 Vital Signs Reviewed: Yes Diagnostics - Vital Signs Vital Signs Temp Pulse Resp BP Pulse Ox 10/12/18 18:37 98.7 F 78 18 178/103 98 - Laboratory Lab Results: Lab Results 10/12/18 Range/Units 20:03 WBC 5.4 (3.5-10.8) 10^3/uL RBC 4.75 (3.70-4.87) 10^6 /uL Hgb 13.9 (12.0-16.0) g/dL Hct 41 (35-47) % MCV 87 (80-97) fL MCH 29 (27-31) pg MCHC 34 (31-36) g/dL RDW 13 (10-15) % Plt Count 276 (150-450) 10^3/uL MPV 8.2 (7.4-10.4) fL Neut % (Auto) Pending Lymph % (Auto) Pending [place] % (Auto) Pending Eos % (Auto) Pending Baso % (Auto) Pending Absolute Neuts (auto) Pending Absolute Lymphs (auto) Pending Absolute Monos (auto) Pending Absolute Eos (auto) Pending Absolute Basos (auto) Pending Absolute Nucleated RBC Pending Nucleated RBC % Pending Result Diagrams: 10/12/18 20:03 10/12/18 20:03 Lab Statement: Any lab studies that have been ordered have been reviewed, and results considered in the medical decision making process. - Radiology Brain MRI Radiology Interpretation Completed By: Radiologist Summary of Radiographic Findings: IMPRESSION: Multiple lesions located in the subcortical and periventricular white matter. Many of the periventricular white matter lesions are oriented perpendicular to. the ependymal surface. The majority of these lesions are hyperintense on flair. and T2-weighted sequence and are isointense to the white matter on the. T1-weighted sequence. There is one T1 weighted dark lesion next the body of the. right lateral ventricle. The appearance of the basal ganglion structures appear. normal. No significant signal loss to suggest iron deposition is seen. No. abnormal parenchymal enhancement. No lesions within the brainstem or cerebellum. These findings were reviewed by Dr. Wilson. 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 Kidd, neurologist, told the pt to come into the ED due to her multiple sclerosis relapse. Pt is taking Avonex for her multiple sclerosis. She states she has incontinence problems due to her multiple sclerosis. The patient rates the pain 6/10 in severity. Symptoms aggravated by nothing. Symptoms alleviated by nothing. Patient reports fever, blisters, chills, right knee pain, difficulty ambulating, myalgia of her entire body, and is able to urinate. She uses a scooter and walker to ambulate. Patient denies cough. Physical exam shows pt is morbidly obese, has left sided weakness, lower extremity is weaker than upper extremity, pt states this is baseline but this is worse now, weakness of right leg. Pt examined while in a wheelchair. Lab results show Carbon dioxide 34, glucose 120, urine blood 2+ A, Ur leukocyte esterase 1+ A, urine WBC 3+ A, urine RBC 3+ A, Ur squamous epith cells present A, urine bacteria 1+ A, hyaline casts present A. Brain MRI IMPRESSION: Multiple lesions located in the subcortical and periventricular white matter. Many of the periventricular white matter lesions are oriented perpendicular to. the ependymal surface. The majority of these lesions are hyperintense on flair. and T2-weighted sequence and are isointense to the white matter on the. T1-weighted sequence. There is one T1 weighted dark lesion next the body of the. right lateral ventricle. The appearance of the basal ganglion structures appear. normal. No significant signal loss to suggest iron deposition is seen. No. abnormal parenchymal enhancement. No lesions within the brainstem or cerebellum. Dr. Wilson discusses pt's case with Dr. Gallegos, neurologist, who says that since pt's symptoms have been worsening for 2 months, no steroids are needed at this time. At 2053, Dr. Gallegos requests Solu-Medrol 1g IV for the pt. At 2129, Dr. Wilson discusses pt's case with Dr. Walker, hospitalist, who agrees to admit pt. Pt is agreeable to admission. During the ED course, the pt was given fentanyl, Levaquin, Solu- MEDROL, and Versed. Dx are MS and UTI. - Diagnoses Provider Diagnoses: Multiple sclerosis, UTI (urinary tract infection) Is Visit Related: No - Physician Notifications Discussed Care Of Patient With: Baljinder Gallegos Time Discussed With Above Provider: 19:44 Instructed by Provider To: Other - Dr. Wilson discusses pt's case with Dr. Gallegos, neurologist, who says that since pt's symptoms have been worsening for 2 months, no steroids are needed at this time. At 2053, Dr. Gallegos requests Solu-Medrol 1g IV for the pt. At 2129, Dr. Wilson discusses pt's case with Dr. Walker, hospitalist, who agrees to admit pt. Pt is agreeable to admission. Discharge - Sign-Out/Discharge Documenting (check all that apply): Patient Departure - admit Patient Received Moderate/Deep Sedation with Procedure: No - Discharge Plan Condition: Stable Disposition: ADMITTED TO [facility] Referrals: Anh Helms MD [Primary Care Provider] - - Attestation Statements Document Initiated by Scribe: Yes Documenting Scribe: Miles Silvestre Provider For Whom Shell is Documenting (Include Credential): Dr. Warner Wilson MD Scribe Attestation: Miles Mortensen scribed for Dr. Warner Wilson MD on 10/13/18 at 0030. Status of Scribe Document: Ready
[2018-10-12 20:27] LABS: ALT 33 U/L (7-52); AST 24 U/L (13-39); Albumin 4.3 g/dL (3.2-5.2); Albumin/Globulin Ratio 1.5 (1-3); Alkaline Phosphatase 86 U/L (34-104); Anion Gap 4 mmol/L (2-11); BUN/Creatinine Ratio 15.6 (8-20); Blood Urea Nitrogen 14 mg/dL (6-24); C Reactive Protein < 1.00 mg/L (<8.01); CO2 Carbon Dioxide 34 mmol/L (22-32); Chloride 101 mmol/L (101-111); EGFR African American 79.6 (>60); EGFR Non-African American 65.8 (>60); Globulin 2.9 g/dL (2-4); Glucose 120 mg/dL (70-100); Potassium 4.2 mmol/L (3.5-5.0); Sodium 139 mmol/L (135-145); Total Protein 7.2 g/dL (6.4-8.9)
[2018-10-12] MEDS ORDERED: Midazolam* 1 MG/ML 5 ML VIAL (5 MG) IV SLOW PU ONE (20:47)
[2018-10-12] MEDS ORDERED: fentaNYL* 50 MCG/ML 2 ML VIAL (100 MCG VIAL) IV SLOW PU ONE (20:48)
[2018-10-12] MEDS ORDERED: methylPREDNISolone SOD SUCC* 1000 MG ML VIAL IVPB ONE (20:55)
[2018-10-12 21:11] LABS: Urine Appearance Cloudy; Urine Bacteria 1+ (Absent); Urine Bilirubin Negative (Negative); Urine Blood 2+ (Negative); Urine Color Yellow; Urine Glucose Negative (Negative); Urine Ketones Negative (Negative); Urine Nitrite Negative (Negative); Urine Protein Negative (Negative); Urine Red Blood Cell 3+(>10/hpf) (Absent); Urine Specific Gravity 1.014 (1.010-1.030); Urine Squamous Epithelial Cell Present (Absent); Urine Urobilinogen Negative (Negative); Urine White Blood Cell 3+(>20/hpf) (Absent)
[2018-10-12] MEDS ORDERED: Gadoteridol* (CONTRAST) 279.3 MG/ML 10 ML IV ONE (21:52)
[2018-10-12] MEDS ORDERED: Levofloxacin 500 MG IVPREMIX(* 500 MG/100 ML BAG IVPB ONE (21:58)
[2018-10-12] MEDS ORDERED: NS 0.9% 1000 ML** 1,000 ML IV SCH (23:30)
[2018-10-13] MEDS ORDERED: methylPREDNISolone SOD SUCC* 1,000 MG in NS 0.9% 250 ML* 250 ML IVPB ONE (00:30)
[2018-10-13] MEDS: Enoxaparin(*) 40 MG/0.4 ML SYR SUBCUT SCH (01:57)
--- NOTE | 2018-10-13 02:59 | HP ---
CC: Dr. Man Kidd; Dr. Anh Helms * ADMISSION HISTORY AND PHYSICAL: DATE OF ADMISSION: 10/12/2018 CHIEF COMPLAINT: Generalized weakness. HISTORY OF PRESENT ILLNESS: This is a 52-year-old female with past medical history of multiple sclerosis, who was sent by her neurologist, Dr. Kidd, for relapse of multiple sclerosis. The patient stated that she was in her usual state of health; however, she noticed that she has been having progressive weakness over the last 2 months. She has also noticed increased urination, which she attributed to her triamterene/hydrochlorothiazide diuretic use and she does have history of recurrent UTIs, but denies any fever or chills that she noticed at home. She is also having increasing pain, mostly in the diffuse body. She otherwise offers no other complaints such as chest pain, shortness of breath or cough. The patient denies any abnormal pain, nausea, vomiting or diarrhea. PAST MEDICAL HISTORY: History of multiple sclerosis for which she is on multiple medications with deficits include left-sided weakness and right knee pain and incontinence of bladder. She also needs assistive devices to walk. She usually uses a walker or power wheelchair. She is also diagnosed with recurrent UTIs, hypertension, vitamin D deficiency, and allergic rhinitis. PAST SURGICAL HISTORY: Include: 1. Tonsillectomy. 2. Cholecystectomy. 3. . 4. Nasal septal repair. HOME MEDICATIONS: The patient is currently on: 1. Triamterene/hydrochlorothiazide 37.5/25 mg 1 tablet oral daily. 2. Vitamin K2 45 mcg p.o. b.i.d. 3. Vitamin D3 1000 units oral b.i.d. 4. Baclofen tablets 20 mg 4 times a day and at bedtime. 5. Gabapentin 300 mg tablets total of 900 mg oral daily at bedtime. 6. Dalfampridine 10 mg p.o. b.i.d. 7. Zyrtec 10 mg daily in the evening. 8. Gabapentin 600 mg oral twice a day. 9. Interferon beta-1a 30 mcg intramuscular weekly. 10. Multivitamins 1 tablet oral daily. ALLERGIES: The patient is allergic to environmental allergies and also claims that she might be allergic to LATEX, but she is unsure. FAMILY HISTORY: Father at age 50 due to a brain stem stroke. Mom at age 68 with lymphoma and had also been diagnosed with dermatomyositis. Brother is alive at age 50, also he was diagnosed with lymphoma. SOCIAL HISTORY: The patient is currently disabled, but used to work at [employer]. Denies any alcohol abuse and tried about 1 to 2 cigarettes in her entire life. No other drug usage. As mentioned, at the baseline the patient does need assistive device to ambulate. PHYSICAL EXAMINATION GENERAL: The patient is awake, alert, and oriented x3, was noted to be in no acute respiratory distress. VITAL SIGNS: Temperature was documented at 98.7, BP was noted to be 160/127, heart rate was noted to be 93, respiration rate was documented at 14, saturating 96% on room air. HEAD AND NECK: Bilateral pupils were reactive. Oral mucosa was moist. Neck supple. No jugular venous distention. LUNGS: Clear to auscultation bilaterally. No wheezing, rhonchi, rales. HEART EXAMINATION: S1, S2. Regular rate and rhythm. ABDOMEN: Soft, nontender, nondistended. EXTREMITIES: The patient had bilateral lower extremity edema noted, which the patient claims due to her sitting on the wheelchair all day long and not ambulating with her walker due to her generalized weakness. DIAGNOSTIC STUDIES/LAB DATA: CBC was unremarkable. Comprehensive metabolic panel was otherwise unremarkable. Urinalysis was showing 2+ blood and positive for 1+ leukocyte esterase. MRI brain was performed as recommended by her neurologist; however, the read is still pending. IMPRESSION: This is a 52-year-old female with multiple sclerosis, sent by her neurologist for possible relapse of multiple sclerosis and the neurologist recommended patient to be started on some Solu-Medrol 1 g IV for possible relapse. 1. Generalized weakness. Questionable if it is secondary to just urinary tract infection that the patient has versus worsening multiple sclerosis flare. The patient already received 1 dose of steroids. We will consult Dr. Gallegos to see if any further treatment for multiple sclerosis flare needs to be initiated at this point. 2. Urinary tract infection. We will start the patient on ceftriaxone and followup urine cultures. 3. History of hypertension. Restart home medications. 4. History of multiple sclerosis. Restart home medications. 5. Bilateral lower extremity swelling, rule out any DVT. 6. DVT prophylaxis. We will start the patient on Lovenox subcu. [id number]/[facility] #: [id number] [facility]
[2018-10-13 06:57] LABS: ABS Lymphocytes 0.8 10^3/ul (1.0-4.8); ABS Monocytes 0.1 10^3/ul (0-0.8); ABS Neutrophils 5.3 10^3/ul (1.5-7.7); Eosinophil % 0.1 %; Hematocrit 43 % (35-47); Hemoglobin 14.5 g/dL (12.0-16.0); Lymphocyte % 12.8 %; Mean Corpuscular HGB Conc 34 g/dL (31-36); Mean Corpuscular Hemoglobin 29 pg (27-31); Mean Corpuscular Volume 86 fL (80-97); Mean Platelet Volume 8.8 fL (7.4-10.4); Platelet Count 282 10^3/uL (150-450); Red Blood Count 4.95 10^6 /uL (3.70-4.87); Red Cell Distribution Width 13 % (10-15); White Blood Count 6.2 10^3/uL (3.5-10.8)
[2018-10-13 07:19] LABS: BUN/Creatinine Ratio 18.4 (8-20); Calcium 9.8 mg/dL (8.6-10.3); EGFR African American 96.7 (>60); EGFR Non-African American 79.9 (>60); Potassium 3.5 mmol/L (3.5-5.0)
[2018-10-13] MEDS: Multivitamins/Minerals TAB PO SCH (08:04)
[2018-10-13] MEDS: Triamterene/HCTZ 37.5-25 MG* CAP PO SCH (08:04)
[2018-10-13] MEDS: VITAMIN K2 PO SCH ×2 (08:05→21:03)
[2018-10-13] MEDS: [UNRECOGNIZED DRUG - OTHER] PO SCH ×2 (08:05→21:03)
[2018-10-13] MEDS: cefTRIAXone(*) 1 GM in NS 0.9% 50 ML* 50 ML IVPB SCH (08:37)
[2018-10-13] MEDS ORDERED: Nicotine PATCH 21 MG/24 HR* PATCH TRANSDERM SCH (09:00)
[2018-10-13] MEDS ORDERED: Baclofen TAB* 20 MG PO SCH (09:00)
[2018-10-13] MEDS ORDERED: Cholecalciferol TAB* 1000 UNITS PO SCH (09:00)
[2018-10-13] MEDS ORDERED: Gabapentin CAP(*) 300 MG PO SCH (09:00)
[2018-10-13] MEDS ORDERED: DALFAMPRIDINE 10 MG PO SCH (09:00)
[2018-10-13] MEDS ORDERED: Phenol 1.4% Spray* 177 ML BTL MT PRN (10:06)
[2018-10-13] MEDS ORDERED: Ibuprofen TAB* 600 MG PO PRN (10:07)
[2018-10-13] MEDS: Baclofen TAB* 20 MG PO SCH ×4 (11:05→21:03)
--- NOTE | 2018-10-13 12:28 | PN ---
Subjective Date of Service: 10/13/18 Interval History: patient seen today, feels better today as compared to her presentation to the outpatient neuro clinic yesterday. S/p One dose of solumedrol [address] Kidd's input appreciated. she is still complaining of right knee pain and tenderness Past Medical History: Unchanged from Admission Objective Active Medications: Baclofen (Lioresal Tab*) 20 mg PO 2200 [facility] Baclofen (Lioresal Tab*) 20 mg PO 0600,1000,1400,1800 [facility] Last Admin: 10/13/18 11:05 Dose: 20 mg Cetirizine HCl (Zyrtec*) 10 mg PO QPM [facility] Enoxaparin Sodium (Lovenox(*)) 40 mg SUBCUT Q24H [facility] Last Admin: 10/13/18 01:57 Dose: 40 mg Gabapentin (Neurontin Cap(*)) 900 mg PO 2200 [facility] Gabapentin (Neurontin Cap(*)) 600 mg PO 0600,1400 [facility] Sodium Chloride (Ns 0.9% 1000 Ml) 1,000 mls @ 25 mls/hr IV PER RATE [facility] Last Admin: 10/13/18 08:37 Dose: 25 mls/hr Ceftriaxone Sodium 1 gm/ (Sodium Chloride) 50 mls @ 100 mls/hr IVPB Q24H [facility] Last Admin: 10/13/18 08:37 Dose: 100 mls/hr Methylprednisolone Sodium Succinate 1,000 mg/ Sodium Chloride 100 mls @ 100 mls /hr IVPB ONCE ONE Stop: 10/13/18 15:59 Ibuprofen (Motrin Tab*) 600 mg PO Q6H PRN PRN Reason: PAIN Multivitamins/Minerals (Theragran/Minerals Tab*) 1 tab PO DAILY [facility] Last Admin: 10/13/18 08:04 Dose: 1 tab Pto: (Vitamin K2 45 Mcg/Vitamin D3 1000 Iu) 45 mcg PO BID [facility] Last Admin: 10/13/18 08:05 Dose: 45 mcg Pto* (Dalfampridine ([Ampyra] 10 Mg)) 10 mg PO 0600,1800 [facility] Phenol/Menthol (Chloroseptic Throat Shelby*) 1 spray MT TID PRN PRN Reason: SORE THROAT Triamterene/HCTZ (Dyazide Cap*) 1 cap PO DAILY [facility] Last Admin: 10/13/18 08:04 Dose: 1 cap Vital Signs - 8 hr 10/13/18 10/13/18 10/13/18 07:27 08:00 08:05 Temperature 98.7 F Pulse Rate 98 Respiratory 18 16 16 Rate Blood Pressure 172/111 (mmHg) O2 Sat by Pulse 98 Oximetry 10/13/18 09:49 Temperature Pulse Rate Respiratory 18 Rate Blood Pressure (mmHg) O2 Sat by Pulse Oximetry Oxygen Devices in Use Now: None Appearance: awake, alert no distress. sitting in recliner. Eyes: No Scleral Icterus, - - EOMI Ears/Nose/Mouth/Throat: NL Teeth, Lips, Gums, Mucous Membranes Moist Neck: NL Appearance and Movements; NL JVP, Trachea Midline Respiratory: Symmetrical Chest Expansion and Respiratory Effort Cardiovascular: NL Sounds; No Murmurs; No JVD, RRR Abdominal: NL Sounds; No Tenderness; No Distention Neurological: Alert and Oriented x 3 Result Diagrams: 10/13/18 06:23 10/13/18 06:23 Additional Lab and Data: Lab Results 10/12/18 Range/Units 20:03 WBC 5.4 (3.5-10.8) 10^3/uL RBC 4.75 (3.70-4.87) 10^6 /uL Hgb 13.9 (12.0-16.0) g/dL Hct 41 (35-47) % MCV 87 (80-97) fL MCH 29 (27-31) pg MCHC 34 (31-36) g/dL RDW 13 (10-15) % Plt Count 276 (150-450) 10^3/uL MPV 8.2 (7.4-10.4) fL Neut % (Auto) Pending Lymph % (Auto) Pending [place] % (Auto) Pending Eos % (Auto) Pending Baso % (Auto) Pending Absolute Neuts (auto) Pending Absolute Lymphs (auto) Pending Absolute Monos (auto) Pending Absolute Eos (auto) Pending Absolute Basos (auto) Pending Absolute Nucleated RBC Pending Nucleated RBC % Pending Assess/Plan/Problems-Billing Assessment: 52 y/o female admitted for MS flare with acute UTI - Patient Problems (1) Multiple sclerosis Current Visit: Yes Status: Acute Code(s): G35 - MULTIPLE SCLEROSIS SNOMED Code(s): 89579296 Comment: - I Appreciate Neuro input from Dr. Kidd - On IV solumedrol 1 gm daily x 3 days. today day # 2/3 - MRI 10/12/18 no enchancing lesion - Contine baclofen/gabapentin (2) UTI (urinary tract infection) Current Visit: Yes Status: Acute Comment: - Follow up UC - On Rocephin 1 gm daily (3) Hypertension Current Visit: Yes Status: Acute Code(s): I10 - ESSENTIAL (PRIMARY) HYPERTENSION SNOMED Code(s): 42279169 Comment: - On dyazide / daily - Will supplement Potasssium as her potassium 3.5 will give 20 mg MEeq daily - Check BMP in am (4) Edema, lower extremity Current Visit: Yes Status: Acute Code(s): R60.0 - LOCALIZED EDEMA SNOMED Code(s): 804381018 Comment: - Patient did not want to lay flat for her US. unfortunately unable to perform and will not take valium. I discussed with Dr. Kidd and he will revisit with the patient if she would take valium (5) Knee pain Current Visit: Yes Status: Acute Code(s): M25.569 - PAIN IN UNSPECIFIED KNEE SNOMED Code(s): 76469397 Comment: - ortho consulted. She can not lay flat for CT or MRI (6) DVT prophylaxis Current Visit: Yes Status: Acute Code(s): Z29.9 - ENCOUNTER FOR PROPHYLACTIC MEASURES, UNSPECIFIED SNOMED Code(s): 956788393
--- NOTE | 2018-10-13 13:26 | CONS ---
NEUROLOGY CONSULTATION: DATE OF CONSULT: 10/13/18 HOSPITALIST: Dr. Arnold. LOCATION: She is in room 410. CHIEF COMPLAINT: Weakness. HISTORY OF PRESENT ILLNESS: Desire Long is a 52-year-old woman, well known to me for outpatient treatment of relapsing/remitting multiple sclerosis. I saw her in my office yesterday because of reports of extreme weakness. She has had multiple sclerosis for several decades and has been on Avonex. She has impaired ambulation at baseline such that she gets around with a scooter and is able to transfer and take steps with a walker in her handicapped-capable apartment. For the last several weeks to perhaps a month, she has been getting much weaker. She has difficulty even sitting up. The chronic muscle spasms and pains in her legs and arms have been aggravated. She had a urinalysis and urine culture 2 weeks prior to my evaluation yesterday at her primary care physician's office, which was negative. She had not had any blood work in quite a while. She has not had an MRI scan of the brain in over a decade because of claustrophobia. She has been taking her medications on a routine basis. She did not have any fevers or chills at home. I recommended that she be admitted via the emergency room for intravenous steroids, repeated falls in a patient who lives alone, new severe right knee pain. She presented to the emergency room yesterday and was found to have a urinary tract infection. She had 3+ white blood cells, 3+ red blood cells, 1+ leukocyte esterase, 1+ urine bacteria. Her CBC was normal other than a low lymphocyte count, which is chronic. Her white blood cell count was not elevated. Her chemistries were notable for a nonfasting glucose of 120. PAST MEDICAL HISTORY: Essentially notable for progressive relapsing/remitting multiple sclerosis. She has been on interferon beta-1a for many years. She has hypertension. PAST SURGICAL HISTORY: She has had a tonsillectomy, cholecystectomy, section. MEDICATIONS: At home were: 1. Dyazide 37.5/25 one tablet p.o. daily. 2. Vitamin D3 at 1000 units p.o. b.i.d. 3. Baclofen 20 mg 5 times per day on a schedule. 4. Gabapentin 300 mg p.o. b.i.d. and 900 mg q.h.s. 5. Ampyra 10 mg p.o. b.i.d. 6. Avonex 30 mcg intramuscularly q. week. ALLERGIES: She does not have any drug allergies. PHYSICAL EXAMINATION: She was examined yesterday in the office. She could barely sit erect. She had just antigravity proximal upper extremity weakness. She had trace movement of the left lower extremity and lessened antigravity hip flexion, quadriceps, and ankle dorsiflexor weakness on the right. Eye movements were choppy, but full. She looked very fatigued. Vital signs today notable for a blood pressure of 166/102, heart rate in the 90s and regular, most recent temperature 98.7. DIAGNOSTIC STUDIES/LAB DATA: She had an MRI of the brain yesterday with and without contrast, which I reviewed. There are no enhancing lesions. There are multiple white matter lesions in the brainstem and deep white matter of the cerebrum. The last MRI that she had was in 2002 and is not available for comparison. IMPRESSION AND PLAN: Impression is that of relapsing/remitting multiple sclerosis, possibly with a relapse, but at least with a urinary tract infection. She has multiple falls and has significant knee pain. She has received 1 dose of Solu-Medrol 1000 mg last night. I will put in for another dose this afternoon and another late tomorrow morning. I have asked for an orthopedic consultation to check her right knee. As an outpatient, we will discuss possibly switching her Avonex to more potent agent. I anticipate she will be discharged back to her handicapped apartment depending upon how she does over the next day or two in terms of mobility status and after evaluation of her right knee. [id number]/[facility] #: [id number] [facility]
[2018-10-13] MEDS ORDERED: methylPREDNISolone SOD SUCC* 1,000 MG in NS 0.9% 100 ML* 100 ML IVPB ONE (15:00)
[2018-10-13] MEDS: Potassium Chlor TAB* 20 MEQ TAB.ER PO SCH (15:05)
[2018-10-13] MEDS: Gabapentin CAP(*) 300 MG PO SCH ×2 (15:06→21:03)
[2018-10-13] MEDS: DALFAMPRIDINE 10 MG PO SCH (17:43)
[2018-10-13] MEDS: Cetirizine* 10 MG TAB PO SCH (17:43)
--- NOTE | 2018-10-13 20:49 | CONS ---
ORTHOPEDIC CONSULTATION: DATE OF CONSULT: 10/13/18 ATTENDING PHYSICIAN: Chidi Roberto MD. HISTORY OF PRESENT ILLNESS: The patient is a 52-year-old female admitted with a relapse of her MS. She states that she was having progressive weakness over the last 2 months. She states she has had m ultiple falls; the last one being 2 days prior to this admission in her bathroom. She is complaining of right knee pain, mainly the anterolateral aspect of the knee. She denies fever or chills, althou gh she is being now treated for a UTI. She does use a scooter as well as a walker to help her ambula tion. PAST MEDICAL HISTORY: Significant for: 1. MS with mostly left-sided weakness. 2. Bladder incontinence. 3. Recurrent UTIs. 4. Hypertension. 5. Vitamin D deficiency. 6. Allergic rhinitis. PAST SURGICAL HISTORY: 1. Tonsillectomy. 2. Cholecystectomy. 3. . 4. Nasal septal repair. MEDICATIONS: On admission: 1. Triamterene/hydrochlorothiazide 37.5/25 mg daily. 2. Vitamin K 45 mcg p.o. b.i.d. 3. Vitamin D3 at 1000 units oral b.i.d. 4. Baclofen 20 mg q.i.d. and at bedtime. 5. Gabapentin 300 mg t.i.d. 6. Dalfampridine 10 mg p.o. b.i.d. 7. Zyrtec 10 mg p.o. q.h.s. 8. Interferon beta-1a 30 mcg intramuscular weekly. 9. Multivitamin 1 p.o. daily. ALLERGIES: ENVIRONMENTAL allergies, questionable LATEX allergy. FAMILY HISTORY: Mom at age 68 with lymphoma. Father at age 50 due to brain stem CVA. Brother with a history of lymphoma, currently living. SOCIAL HISTORY: The patient is currently disabled. She denies alcohol use. Does not smoke. Does n ot use drugs. PHYSICAL EXAMINATION: The patient is sitting in her chair. She is alert and oriented x3, in no acut e distress. Vital Signs: Temperature 98, pulse 110, respiratory rate 19, O2 sat is 98% on room air, blood pressure 176/106. Orthopedic Exam: Examination of the right knee shows hardened skin callus on the tibial tubercle regions of the both knees. There is no warmth or erythema. There is no effus ion. She has active extension against gravity and has 5/5 strength of the quadriceps against resista nce. She has diffuse mild tenderness about the knee. There is no gross instability to varus or valgu s stresses. Her flexion is to 100 degrees. Her sensation is intact distally. She has active dorsif lexion of the ankle. LABORATORY DATA/DIAGNOSTIC STUDIES: Laboratory studies show a normal white count of 6.2. Urinalysis positive for UTI. X-ray examination repeated today. It showed some mild degenerative changes in the medial compartment . No obvious fractures are identified. IMPRESSION: Right knee pain, probable flare of osteoarthritis/contusion, status post fall. PLAN: She may continue to bear weight as tolerated without restriction on the right lower extremity. She has been placed on a steroid for her MS. She may resume her ibuprofen when she is done with th e steroid taper. Recommend a followup in the office in 3 to 4 weeks to see how she is progressing. INGRID JOSEPH [id number]/[facility] #: [id number]
[2018-10-13] MEDS ORDERED: Nicotine Patch Removal NOTE PATCH OFF SCH (21:00)
[2018-10-14] MEDS: Enoxaparin(*) 40 MG/0.4 ML SYR SUBCUT SCH ×2 (00:17→23:59)
[2018-10-14] MEDS ORDERED: hydrALAZINE IV* 20 MG/ML VIAL IV SLOW PU PRN (04:46)
[2018-10-14] MEDS: Gabapentin CAP(*) 300 MG PO SCH ×3 (05:31→21:55)
[2018-10-14] MEDS: Baclofen TAB* 20 MG PO SCH ×5 (05:32→21:55)
[2018-10-14] MEDS: DALFAMPRIDINE 10 MG PO SCH ×2 (05:32→18:07)
[2018-10-14] MEDS: Multivitamins/Minerals TAB PO SCH (08:17)
[2018-10-14] MEDS: Potassium Chlor TAB* 20 MEQ TAB.ER PO SCH (08:17)
[2018-10-14] MEDS: cefTRIAXone(*) 1 GM in NS 0.9% 50 ML* 50 ML IVPB SCH (08:17)
[2018-10-14] MEDS: Triamterene/HCTZ 37.5-25 MG* CAP PO SCH (08:17)
[2018-10-14] MEDS: [UNRECOGNIZED DRUG - OTHER] PO SCH ×2 (08:18→21:54)
[2018-10-14] MEDS: VITAMIN K2 PO SCH ×2 (08:18→21:54)
--- NOTE | 2018-10-14 09:58 | PN ---
Progress Note - Progress Note Date of Service: 10/14/18 Note: 52 yo female admitted with an MS flare. Has been having right knee pain since the Fall, when she fell. X-rays in February unimpressive and x-rays yesterday also benign. Describes pain at distal IT band and lateral patella femoral joint. Tender there to palpation as well. D/W her tightness of the IT band driving those lateral knee symptoms and the PFJ driving the anterior/lateral pain. Also reviewed mechanics, as sitting aggravates the PFJ pain and how her MS and being limited adds to to this. Ordered PT just now, so hopefully can receive some instructions on a HEP so she can work this on her own some and will use the shared EMR to write a PT script for outpatient PT as well.
[2018-10-14 11:35] LABS: BUN/Creatinine Ratio 20.5 (8-20); Calcium 9.8 mg/dL (8.6-10.3); EGFR African American 101.3 (>60); EGFR Non-African American 83.7 (>60)
--- NOTE | 2018-10-14 13:58 | CONS ---
NEUROLOGY CONSULT FOLLOWUP: DATE OF FOLLOWUP: 10/14/18 LOCATION: She is an inpatient in room 410. HOSPITALIST: Dr. Arnold. CHIEF COMPLAINT: Multiple sclerosis relapse, weakness. INTERVAL HISTORY: Since yesterday, Desire feels better. She still has right knee pain, but she feel s her strength is improved. She has been drinking a lot of water and her urine has cleared. MEDICATIONS: Medications were reviewed and she received her second dose of Solu- Medrol 1000 mg yest erday. She is on: 1. Ceftriaxone 1 g IV q.24 hours. 2. Baclofen 20 mg orally 5 times per day. 3. Lovenox 40 mg subcutaneous q.24 hours. 4. Gabapentin 600 mg p.o. b.i.d. and 900 mg q.h.s. 5. Ampyra 10 mg p.o. b.i.d. 6. Potassium 20 mEq p.o. q. day. 7. Dyazide 1 tablet p.o. q. day. PHYSICAL EXAM: Temperature 97.7, blood pressure 160/90, heart rate in the 80s and regular. Respirat ory rate is 18 and oxygen saturation is 100% on room air. She is alert and oriented. Speech is clear and language is fluent. Memory is intact. She has mild proximal upper extremity weakness. She still has less than antigravity lower extremity weakness. DIAGNOSTIC STUDIES/LAB DATA: Laboratory data is reviewed and her CBC is unremarkable. Chemistries t his morning is notable for a glucose of 271. Orthopedic referral was reviewed. Impression was that of arthritis in the right knee and mechanical fall. It was felt she would probably benefit from physical therapy as an outpatient. An x-ray of he r right knee was interpreted as showing minimal osteoarthritis. There was [id number] medial kisha int space narrowing. There was diffuse soft tissue edema. IMPRESSION AND PLAN: There is improved weakness after treatment for urinary tract infection and poss sunni multiple sclerosis relapse. She has had recurrent urinary tract infections and I discussed mehnaz rothman seeing a urologist as an outpatient for evaluation and possible initiation of intermittent strai ght catheterization. I am going to give her a third day of Solu-Medrol today and space it out a teri le longer to get it closer to the 24-hour rachel. She [facility] with yesterday's infusion. I anticipate she will be discharged to home tomorrow and I scotty l see her in followup subsequently. I will discuss her case with Dr. Arnold. [id number]/[facility] #: [id number]
--- NOTE | 2018-10-14 16:44 | PN ---
Subjective Date of Service: 10/14/18 Interval History: Patient seen today, she report that she did have increase itching and pain at the site of the solumedrol infusion last night. Seen by Dr. Kidd today and she will get her third solumedol dose this evening and if she is stable will discharge tomorrow., Past Medical History: Unchanged from Admission Objective Active Medications: Baclofen (Lioresal Tab*) 20 mg PO 2200 [facility] Last Admin: 10/13/18 21:03 Dose: 20 mg Baclofen (Lioresal Tab*) 20 mg PO 0600,1000,1400,1800 [facility] Last Admin: 10/14/18 14:51 Dose: 20 mg Cetirizine HCl (Zyrtec*) 10 mg PO QPM [facility] Last Admin: 10/13/18 17:43 Dose: 10 mg Enoxaparin Sodium (Lovenox(*)) 40 mg SUBCUT Q24H [facility] Last Admin: 10/14/18 00:17 Dose: 40 mg Gabapentin (Neurontin Cap(*)) 900 mg PO 2200 [facility] Last Admin: 10/13/18 21:03 Dose: 900 mg Gabapentin (Neurontin Cap(*)) 600 mg PO 0600,1400 [facility] Last Admin: 10/14/18 14:51 Dose: 600 mg Hydralazine HCl (Apresoline Iv*) 5 mg IV SLOW PU Q6H PRN PRN Reason: SYSTOLIC BP GREATER THAN: Sodium Chloride (Ns 0.9% 1000 Ml) 1,000 mls @ 25 mls/hr IV PER RATE [facility] Last Admin: 10/13/18 08:37 Dose: 25 mls/hr Ceftriaxone Sodium 1 gm/ (Sodium Chloride) 50 mls @ 100 mls/hr IVPB Q24H [facility] Last Admin: 10/14/18 08:17 Dose: 100 mls/hr Methylprednisolone Sodium Succinate 1,000 mg/ Sodium Chloride 100 mls @ 100 mls /hr IVPB ONCE ONE Stop: 10/14/18 18:59 Multivitamins/Minerals (Theragran/Minerals Tab*) 1 tab PO DAILY [facility] Last Admin: 10/14/18 08:17 Dose: 1 tab Pto: (Vitamin K2 45 Mcg/Vitamin D3 1000 Iu) 45 mcg PO BID [facility] Last Admin: 10/14/18 08:18 Dose: 45 mcg Pto* (Dalfampridine ([Ampyra] 10 Mg)) 10 mg PO 0600,1800 [facility] Last Admin: 10/14/18 05:32 Dose: 10 mg Potassium Chloride (Klor Con Er Tab*) 20 meq PO DAILY [facility] Last Admin: 10/14/18 08:17 Dose: 20 meq Triamterene/HCTZ (Dyazide Cap*) 1 cap PO DAILY [facility] Last Admin: 10/14/18 08:17 Dose: 1 cap Vital Signs - 8 hr 10/14/18 10/14/18 10/14/18 09:59 11:15 14:51 Temperature 97.7 F Pulse Rate 83 Respiratory 18 16 Rate Blood Pressure 160/94 159/92 (mmHg) O2 Sat by Pulse 100 Oximetry 10/14/18 15:15 Temperature 97.9 F Pulse Rate 82 Respiratory 18 Rate Blood Pressure 164/84 (mmHg) O2 Sat by Pulse 100 Oximetry Oxygen Devices in Use Now: None Appearance: awake, obese no distress Eyes: No Scleral Icterus, PERRLA Ears/Nose/Mouth/Throat: Clear Oropharnyx, Mucous Membranes Moist Neck: NL Appearance and Movements; NL JVP, Trachea Midline Respiratory: Symmetrical Chest Expansion and Respiratory Effort, Clear to Auscultation Cardiovascular: NL Sounds; No Murmurs; No JVD Abdominal: NL Sounds; No Tenderness; No Distention Neurological: Alert and Oriented x 3 Result Diagrams: 10/13/18 06:23 10/14/18 10:40 Additional Lab and Data: Lab Results 10/12/18 Range/Units 20:03 WBC 5.4 (3.5-10.8) 10^3/uL RBC 4.75 (3.70-4.87) 10^6 /uL Hgb 13.9 (12.0-16.0) g/dL Hct 41 (35-47) % MCV 87 (80-97) fL MCH 29 (27-31) pg MCHC 34 (31-36) g/dL RDW 13 (10-15) % Plt Count 276 (150-450) 10^3/uL MPV 8.2 (7.4-10.4) fL Neut % (Auto) Pending Lymph % (Auto) Pending Rich % (Auto) Pending Eos % (Auto) Pending Baso % (Auto) Pending Absolute Neuts (auto) Pending Absolute Lymphs (auto) Pending Absolute Monos (auto) Pending Absolute Eos (auto) Pending Absolute Basos (auto) Pending Absolute Nucleated RBC Pending Nucleated RBC % Pending Microbiology and Other Data: Microbiology 10/12/18 20:56 Urine Culture - Final Urine No Growth (<1,000 CFU/mL) Assess/Plan/Problems-Billing Assessment: 52 y/o female admitted for MS flare with acute UTI - Patient Problems (1) Multiple sclerosis Current Visit: Yes Status: Acute Code(s): G35 - MULTIPLE SCLEROSIS SNOMED Code(s): 98047570 Comment: - I Appreciate Neuro input from Dr. Kidd - On IV solumedrol 1 gm daily x 3 days. today day # 3/3 - MRI 10/12/18 no enchancing lesion - Contine baclofen/gabapentin - Possible discharge in am (2) UTI (urinary tract infection) Current Visit: Yes Status: Acute Comment: - Follow up UC - On Rocephin 1 gm daily day # 2 - Agree with urology referral for oupatient (3) Hypertension Current Visit: Yes Status: Acute Code(s): I10 - ESSENTIAL (PRIMARY) HYPERTENSION SNOMED Code(s): 11060708 Comment: - On dyazide 37/25 daily - Will supplement Potasssium as her potassium 3.5 will give 20 mg MEeq daily - Check BMP in am (4) Edema, lower extremity Current Visit: Yes Status: Acute Code(s): R60.0 - LOCALIZED EDEMA SNOMED Code(s): 294324449 Comment: - Patient did not want to lay flat for her US. unfortunately unable to perform and will not take valium. (5) Knee pain Current Visit: Yes Status: Acute Code(s): M25.569 - PAIN IN UNSPECIFIED KNEE SNOMED Code(s): 64647786 Comment: - ortho consulted. She can not lay flat for CT or MRI - Recommended PT outpatient as well (6) DVT prophylaxis Current Visit: Yes Status: Acute Code(s): Z29.9 - ENCOUNTER FOR PROPHYLACTIC MEASURES, UNSPECIFIED SNOMED Code(s): 229861762 Comment: - lovenox 40 mg SQ daily
[2018-10-14] MEDS ORDERED: methylPREDNISolone SOD SUCC* 1,000 MG in NS 0.9% 100 ML* 100 ML IVPB ONE (18:00)
[2018-10-14] MEDS: Cetirizine* 10 MG TAB PO SCH (18:07)
[2018-10-15] MEDS: Baclofen TAB* 20 MG PO SCH ×3 (05:58→14:37)
[2018-10-15] MEDS: DALFAMPRIDINE 10 MG PO SCH (05:58)
[2018-10-15] MEDS: Gabapentin CAP(*) 300 MG PO SCH ×2 (05:58→14:37)
[2018-10-15] MEDS: cefTRIAXone(*) 1 GM in NS 0.9% 50 ML* 50 ML IVPB SCH (10:20)
[2018-10-15] MEDS: Triamterene/HCTZ 37.5-25 MG* CAP PO SCH (10:20)
[2018-10-15] MEDS: Multivitamins/Minerals TAB PO SCH (10:20)
[2018-10-15] MEDS: [UNRECOGNIZED DRUG - OTHER] PO SCH (10:21)
[2018-10-15] MEDS: VITAMIN K2 PO SCH (10:21)
[2018-10-15 11:16] VITALS: BP 160/88
--- NOTE | 2018-10-15 12:34 | CONS ---
NEUROLOGY CONSULT FOLLOWUP: DATE OF FOLLOWUP: 10/15/18 LOCATION: She is an inpatient in room 410. CHIEF COMPLAINT: Multiple sclerosis relapse, urinary tract infection. INTERVAL HISTORY: Since yesterday, Desire feels well. She had some burning with infusion of her Kisha u-Medrol, but it was completed. She feels her strength is improved. She saw Dr. Roberto in followup regarding her knee pain and physical therapy has been prescribed as well as a home exercise program. MEDICATIONS: Are reviewed and she is on: 1. Baclofen 20 mg 5 times per day. 2. Ceftriaxone 1 g IV q.24 hours. 3. Lovenox 40 mg subcutaneous q.24 hours. 4. Gabapentin 600 mg p.o. b.i.d. and 900 mg q.h.s. 5. Ampyra 10 mg p.o. b.i.d. 6. Dyazide 1 cap per day. PHYSICAL EXAM: She is well hydrated. Temperature 97.1, blood pressure 150/62, heart rate 80 and reg ular. Respiratory rate is 17 and oxygen saturation is 99% on room air. Neurologically, facial musculature is symmetric. Eye movements are full. Speech is clear. On motor exam, she has grade 4 to 4+ proximal weakness bilaterally in the upper extremities, she has normal w rist extensor strength bilaterally. In the lower extremities, she has barely grade 2 left hip flexio n weakness, she has full extension of the quadriceps and grade 4 left ankle dorsiflexor weakness. On the right, she has grade 4- right hip flexor weakness, she has full quadriceps extension, she has at least 4+ right dorsiflexor strength. She is alert and in good spirits. Memory is intact and [employer] is fluent. LABORATORY DATA: There is no new laboratory data today. IMPRESSION AND PLAN: Impression is that of a possible multiple sclerosis relapse versus pseudo-relap se in the setting of a urinary tract infection. She also has knee arthritis and pain, which is being addressed. We will plan that she will likely be discharged today to home. She will continue her home exercise kyle crawford and Dr. Roberto has kindly also arranged for an outpatient physical therapy referral. I have called in a prednisone taper for 7 days and advised Desire accordingly. I will plan to see her in [place] in my office. One issue to address is getting her larger electric scooter fixed as she has be en using a small one and it is creating or at least aggravating her knee problems. We will also see in followup and discuss possibly changing her disease- modifying agent from Avonex to a different age nt. [id number]/[facility] #: [id number]
[2018-10-15] MEDS ORDERED: Cefdinir cap* 300 MG CAP PO ONE (12:43)
--- NOTE | 2018-10-15 20:37 | DS ---
CC: Dr. Anh Helms; Dr. Chidi Roberto; Dr. Man Kidd * DISCHARGE SUMMARY: DATE OF ADMISSION: 10/12/18 DATE OF DISCHARGE: 10/15/18 PRIMARY CARE PROVIDER: Dr. Anh Helms. FINAL DISCHARGE DIAGNOSES: 1. Multiple sclerosis with acute flare-up. 2. Urinary tract infection. 3. Hypertension. 4. Chronic lower extremity edema. 5. Right knee osteoarthritis. HOSPITAL COURSE: The patient was referred to our service by her neurologist from the outpatient clinic on 10/12/18 for worsening MS symptoms manifested with generalized weakness and frequent urination with no fever or chills. She was seen by Neurology. Given her constellation of the symptoms with underlying multiple sclerosis, she was referred to our emergency room to be evaluated. In the emergency room, she had an MRI of the brain, which shows multiple lesions in the subcortical and periventricular white matter, but no enhancing lesion; therefore, Neurology did recommend to start IV Solu-Medrol infusion for 3 days 1 g daily. Also, on her workup, she did have positive urinalysis for 3+ wbc's, 1 + leukocytes, 1+ bacteria. Therefore, she was started on IV antibiotic for UTI with ceftriaxone. She remained stable throughout the hospital course without any worsening of her symptoms. Actually, her symptoms improved and today , she was seen, assessed and evaluated. She completed her Solu-Medrol yesterday on 10/14/18 and she was cleared from Neurology to be released. The patient was seen and evaluated by me and she was deemed stable for discharge home in stable condition. DISCHARGE PHYSICAL EXAM: Temperature 98, pulse 79, respiratory rate 16, and blood pressure 160/88. General: She is awake, alert, oriented, pleasant, obese , in no apparent distress. Lungs: Clear to auscultation. Cardiovascular: S1 , S2. Regular rate and rhythm. Abdomen: Obese, soft, nontender. No rebound. No guarding. Lower Extremities: Bilateral edema, worse on the left. Right lower extremity: She does have some mild tenderness over the right tibial tuberosity. INPATIENT DIAGNOSTIC WORKUP: CBC unremarkable. Chemistry fairly unremarkable. Urinalysis: Positive pyuria. Culture shows no growth. Imaging: She had brain MRI, which shows multiple lesions in the subcortical and periventricular white matter, most of them are oriented perpendicular to the ependymal surface. They are hyperintense on the T2-weighted sequence and isointense on the T1-weighted sequence. X-ray of her knee, 10/13/18, shows no effusion. There is osteoarthritis with osteophytes and moderate medial joint space narrowing. DISCHARGE MEDICATIONS: 1. Continue baclofen 20 mg 4 times daily. 2. Baclofen 20 mg at bedtime. 3. Zyrtec 10 mg at bedtime. 4. Vitamin D 1000 b.i.d. 5. Ampyra 10 mg b.i.d. 6. Neurontin 900 mg at bedtime. 7. Neurontin 600 mg b.i.d. 8. Avonex 30 mcg weekly. 9. Triamterene with hydrochlorothiazide 37.5/25 daily. 10. Vitamin K 45 mcg b.i.d. 11. Cefdinir 300 mg b.i.d. DISCHARGE INSTRUCTIONS: 1. Follow up with Dr. Kidd in 1 to 2 weeks. 2. Follow up with Dr. Roberto, Orthopedics, in 1 month. 3. Follow up with PCP, Dr. Anh Helms, in 1 to 2 weeks. DISCHARGE CONDITION: Stable. DISCHARGE DISPOSITION: Home. [id number]/[facility] #: [id number] [facility]
== END 2018-10-15 15:25 | disposition home or self-care (01) | DRG 59 ==
LOC: ED 18:32 → MED 23:29
PROVIDERS: ADMIT Internal Medicine; ATTEND Internal Medicine
DX: G35 Multiple sclerosis (principal); N39.0 Urinary tract infection, site not specified; I10 Essential (primary) hypertension; R60.0 Localized edema; M17.11 Unilateral primary osteoarthritis, right knee; M25.761 Osteophyte, right knee; R53.1 Weakness; E54 Ascorbic acid deficiency; E55.9 Vitamin D deficiency, unspecified; R32 Unspecified urinary incontinence; J30.9 Allergic rhinitis, unspecified; Z87.440 Personal history of urinary (tract) infections; Z79.899 Other long term (current) drug therapy; Z91.040 Latex allergy status; Z82.3 Family history of stroke; Z80.7 Family history of other malignant neoplasms of lymphoid, hematopoietic and related tissues
CPT/HCPCS: 36415; 70553; 80048; 80053; 81003; 81015; 85025; 85060; 86140; 87086; 99284; A9270-GY; A9579; G8978-GP-CK; G8979-GP-CJ; J0696; J1650; J1956; J2250; J2930; J3010

== ENCOUNTER 2020-04-22 11:14 | Inpatient (IN) ==
[2020-04-22 14:35] LABS: Hematocrit 43 % (35-47); Hemoglobin 14.9 g/dL (12.0-16.0); Mean Corpuscular HGB Conc 35 g/dL (31-36); Mean Corpuscular Hemoglobin 30 pg (27-31); Mean Corpuscular Volume 86 fL (80-97); Mean Platelet Volume 7.9 fL (7.4-10.4); Platelet Count 358 10^3/uL (150-450); Red Blood Count 5.01 10^6 /uL (3.70-4.87); Red Cell Distribution Width 13 % (10-15); White Blood Count 7.5 10^3/uL (3.5-10.8)
[2020-04-22 14:50] LABS: Albumin 4.1 g/dL (3.2-5.2); Calcium 10.4 mg/dL (8.6-10.3); Magnesium 2.2 mg/dL (1.9-2.7); Total Bilirubin 0.3 mg/dL (0.2-1.0)
[2020-04-22 14:55] LABS: Urine Appearance Turbid; Urine Bacteria 1+ (Absent); Urine Bilirubin Negative (Negative); Urine Blood 2+ (Negative); Urine Color Yellow; Urine Glucose Negative (Negative); Urine Ketones Negative (Negative); Urine Nitrite Negative (Negative); Urine Protein 2+(100 mg/dL) (Negative); Urine Red Blood Cell 3+(>10/hpf) (Absent); Urine Specific Gravity 1.011 (1.010-1.030); Urine Squamous Epithelial Cell Present (Absent); Urine Urobilinogen Negative (Negative); Urine White Blood Cell 3+(>20/hpf) (Absent)
[2020-04-22 14:56] LABS: Albumin/Globulin Ratio 1.2 (1-3); BUN/Creatinine Ratio 15.9 (8-20); C Reactive Protein 2.58 mg/L (<8.01); EGFR African American 107.3 (>60); EGFR Non-African American 88.7 (>60); Globulin 3.3 g/dL (2-4); Total Protein 7.4 g/dL (6.4-8.9)
[2020-04-22] MEDS ORDERED: methylPREDNISolone SOD SUCC 1000 MG ML VIAL IVPB ONE (15:13)
[2020-04-22 15:19] LABS: TSH Ultra Thyroid Stim Horm 1.8 mcIU/mL (0.34-5.60)
[2020-04-22 15:22] LABS: ABS Basophils 0.1 10^3/ul (0-0.2); ABS Eosinophils 0.2 10^3/ul (0-0.6); ABS Lymphocytes 1.9 10^3/ul (1.0-4.8); ABS Monocytes 0.6 10^3/ul (0-0.8); ABS Neutrophils 4.8 10^3/ul (1.5-7.7); Eosinophil % 2.3 %; Lymphocyte % 25.1 %
[2020-04-22] MEDS ORDERED: methylPREDNISolone SOD SUCC 1,000 MG in NS 0.9% 250 ml 250 ML IVPB ONE (15:23)
[2020-04-22] MEDS: cefTRIAXone 1 gm/50 mL NS BAG 1 GM/50 ML BAG IVPB SCH (20:36)
[2020-04-22] MEDS: PTO:Dalfampridine ER 10 mg (NF) TAB.ER.12H PO SCH (22:34)
[2020-04-22] MEDS: Enoxaparin 40 MG/0.4 ML SYR SUBCUT SCH (22:35)
[2020-04-23] MEDS ORDERED: LORazepam 2 mg VIAL 1 ml IV PUSH ONE (08:29)
[2020-04-23] MEDS ORDERED: Lorazepam PYXIS KEY PRN (08:29)
[2020-04-23] MEDS: PTO:Dalfampridine ER 10 mg (NF) TAB.ER.12H PO SCH ×2 (09:42→19:46)
[2020-04-23] MEDS: Oxymetazoline 0.05% NASAL SPR 15 ML BTL BOTH NARES SCH ×2 (12:43→19:47)
[2020-04-23] MEDS: methylPREDNISolone SOD SUCC 1,000 MG in NS 0.9% 250 ml 250 ML IVPB SCH (15:49)
[2020-04-23] MEDS ORDERED: methylPREDNISolone SOD SUCC 1000 MG ML VIAL IVPB SCH (16:00)
[2020-04-23] MEDS: cefTRIAXone 1 gm/50 mL NS BAG 1 GM/50 ML BAG IVPB SCH (18:03)
[2020-04-23] MEDS: Enoxaparin 40 MG/0.4 ML SYR SUBCUT SCH (19:46)
[2020-04-24 06:01] LABS: Hematocrit 37 % (35-47); Hemoglobin 12.5 g/dL (12.0-16.0); Mean Corpuscular HGB Conc 34 g/dL (31-36); Mean Corpuscular Hemoglobin 29 pg (27-31); Mean Corpuscular Volume 86 fL (80-97); Mean Platelet Volume 8.4 fL (7.4-10.4); Platelet Count 328 10^3/uL (150-450); Red Blood Count 4.31 10^6 /uL (3.70-4.87); Red Cell Distribution Width 13 % (10-15); White Blood Count 13.6 10^3/uL (3.5-10.8)
[2020-04-24] MEDS ORDERED: LORazepam 2 mg VIAL 1 ml IV PUSH ONE (08:00)
[2020-04-24 08:11] LABS: Potassium 4.5 mmol/L (3.5-5.0)
[2020-04-24 08:12] LABS: BUN/Creatinine Ratio 24.2 (8-20); Calcium 9.8 mg/dL (8.6-10.3); EGFR African American 112.9 (>60); EGFR Non-African American 93.3 (>60)
[2020-04-24] MEDS: Oxymetazoline 0.05% NASAL SPR 15 ML BTL BOTH NARES SCH ×2 (08:25→22:51)
[2020-04-24] MEDS: PTO:Dalfampridine ER 10 mg (NF) TAB.ER.12H PO SCH ×2 (08:25→22:51)
[2020-04-24] MEDS ORDERED: LORazepam 2 mg VIAL 1 ml ONE (11:35)
[2020-04-24] MEDS ORDERED: Flumazenil 0.5 mg/5 ml 0.1 MG/ML 5 ml VIAL ONE (12:48)
[2020-04-24] MEDS: methylPREDNISolone SOD SUCC 1,000 MG in NS 0.9% 250 ml 250 ML IVPB SCH (15:31)
[2020-04-24] MEDS: Enoxaparin 40 MG/0.4 ML SYR SUBCUT SCH (22:51)
[2020-04-25] MEDS: PTO:Dalfampridine ER 10 mg (NF) TAB.ER.12H PO SCH (08:17)
[2020-04-25] MEDS: Oxymetazoline 0.05% NASAL SPR 15 ML BTL BOTH NARES SCH (08:19)
[2020-04-25 11:18] VITALS: BP 162/89
[2020-04-28 13:14] LABS: QuantiferonTb Gold Plus Result Negative (Negative)
== END 2020-04-25 11:50 | disposition home or self-care (01) | DRG 59 ==
LOC: ED 11:14 → SSU 16:55
PROVIDERS: ADMIT Internal Medicine; ATTEND Internal Medicine